=== PATIENT | female | born 1960 | race African-American/Black ===

== ENCOUNTER 2016-10-24 12:59 | Inpatient (IN) | payer MEDICAID, OTHER ==
[2016-10-24] VITALS (12 sets, daily range): BP systolic 80–106; BP diastolic 53–85
[~2016-10-24] VITALS: Ht 172.7 cm; Wt 103.9 kg
[~2016-10-24 12:59] MED LIST: ALDACTONE50 MG ORAL; ANUCORT-HC25 MG RECTAL; ASPIRIN500 MG ORAL; COREG3.125 MG ORAL; DIGOXIN0.125 MG/2 ORAL; FUROSEMIDE20 M1 ORAL; GLIPIZIDE5 MG ORAL; HUMULIN N100 UNIT/3 SQ; HUMULIN R100 UNIT/1 SUBQ; HYDROCODONE; HYDROCORTISONE20 MG PO; JANUVIA100 MG ORAL; OMEPRAZOLE20 M2 ORAL; SIMVASTATIN40 MG ORAL; SIMVASTATIN5 MG ORAL; ZOFRAN4 MG ORAL; ZOLOFT50 MG ORAL
[2016-10-24] MEDS ORDERED: MAG-OXIDE400 M1 PO (13:14)
[2016-10-24] MEDS ORDERED: VITAMIN B12 PO (13:14)
[2016-10-24] MEDS ORDERED: VENTOLIN HFA18 GM INH (13:14)
[2016-10-24] MEDS ORDERED: Solu-MEDROL 125mg Inj IVP ONE (13:15)
[2016-10-24] MEDS ORDERED: Ipratropium 0.02% Inh Soln 2.5ml UD HHN ONE (13:15)
[2016-10-24] MEDS ORDERED: FERROUS SULFAT325 MG ORAL (13:15)
[2016-10-24] MEDS ORDERED: fentaNYL 100 mcg/2 mL IV ONE (13:15)
[2016-10-24] MEDS ORDERED: DICLOFENAC SODI50 MG ORAL (13:16)
[2016-10-24] MEDS ORDERED: MONTELUKAST SOD10 MG ORAL (13:18)
[2016-10-24] MEDS ORDERED: JARDIANCE PO (13:18)
[2016-10-24] MEDS ORDERED: PROBIOTIC1 EAC3 PO (13:20)
[2016-10-24] MEDS ORDERED: ASPIR 8181 MG ORAL (13:20)
[2016-10-24] MEDS ORDERED: IBUPROFEN PO (13:20)
[2016-10-24] MEDS ORDERED: VITAMIN D2 PO (13:23)
[2016-10-24] MEDS ORDERED: GABAPENTIN300 MG ORAL (13:23)
[2016-10-24] MEDS ORDERED: TRAZODONE HCL50 MG ORAL (13:23)
[2016-10-24] MEDS ORDERED: METFORMIN HCL1000 M1 ORAL (13:23)
[2016-10-24] MEDS: Albuterol ud Inhalation HHN SCH ×3 (13:26→13:45)
[2016-10-24 13:30] LABS: BASOPHILS % (AUTO) 0.9 % (0.0-2.0); EOSINOPHILS % (AUTO) 0.7 % (0.0-3.0); MEAN CORPUSCULAR VOLUME 93 FL (80-99); MEAN PLATELET VOLUME 5.3 FL (6.5-10.1); MONOCYTES % (AUTO) 5.4 % (1.0-10.0); PLATELET COUNT 351 K/UL (150-450); RED CELL DISTRIBUTION WIDTH 17.6 % (11.6-14.8); WHITE BLOOD COUNT 9.2 K/UL (4.8-10.8)
--- NOTE | 2016-10-24 13:40 | Diagnostic Imaging Report ---
Indication: Dyspnea Comparison: 05/08/13 A single view chest radiograph was obtained. Findings: Prominent interstitial markings and prominent pulmonary vessels demonstrated with cardiomegaly. No definite pleural effusions are appreciated. There is a pacemaker again noted on the left. Bones are unremarkable. Impression: Evidence of CHF
[2016-10-24 13:48] LABS: ALANINE AMINOTRANSFERASE 19 U/L (3-33); ALBUMIN/GLOBULIN RATIO 1.3 (1.0-2.7); ANION GAP 13 (5-15); ASPARTATE AMINO TRANSFERASE 20 U/L (5-40); CALCIUM 9.2 mg/dL (8.6-10.2); CARBON DIOXIDE 25 mEQ/L (20-30); CHLORIDE 104 mEQ/L (98-107); CREATININE 2.4 mg/dL (0.5-0.9); GLOMERULAR FILTRATION RATE 25.6 mL/min (>60); HEMOLYSIS 31; POTASSIUM 5.1 mEQ/L (3.4-4.9); SODIUM 142 mEQ/L (135-145); TOTAL PROTEIN 7.4 g/dL (6.6-8.7)
[2016-10-24 13:55] LABS: INR 1.2 (0.9-1.1); PROTHROMBIN TIME 12.1 SEC (9.30-11.50)
--- NOTE | 2016-10-24 14:49 | Emergency Room Report ---
History of Present Illness General Chief Complaint: Dyspnea/Respdistress Source: Patient, EMS Present Illness HPI Patient presents via EMS with dyspnea. Low O2 sats at home. Given albuterol on way in with improved sats (98%). H/O COPD and CHF. Denies chest pain, fever, NVD, productive cough. Not on prednisone at this time. States never intubated and this is not her worst attack. In past has had problems with inhalers and some forms of steroids. Uses BIPAP at home as well as nebulizer. Diabetic, not eat today. On digoxin. Also h/o psych problems. 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 Retains fluid - some edema. 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 Reviewed Nursing Documentation: PMH: Agreed, PSxH: Agreed Nursing Documentation-PMH Past Medical History: No History, Except For Hx Cardiac Problems: Yes - Left sided AICD Hx Hypertension: Yes Hx Pacemaker: Yes Hx COPD: Yes Hx Diabetes: Yes Hx Cancer: No Hx Gastrointestinal Problems: Yes Hx Neurological Problems: Yes Hx Cerebrovascular Accident: Yes - 2007 Hx Dizziness: Yes Hx Syncope: Yes Hx Numbness: Yes - Right side Review of Systems All Other Systems: negative except mentioned in HPI Physical Exam Vital Signs Date Time Temp Pulse Resp B/P Pulse Ox O2 Delivery O2 Flow Rate FiO2 10/24/16 12:58 97.7 93 18 83/54 100 Room Air 10/24/16 13:51 10.0 10/24/16 14:36 30 Sp02 EP Interpretation: reviewed, normal General Appearance: mild distress Head: normocephalic Eyes: bilateral eye PERRL, bilateral eye normal inspection ENT: moist mucus membranes Neck: supple Respiratory: no respiratory distress, no retraction, no accessory muscle use, wheezing, expiration, inspiration Cardiovascular #1: regular rate, rhythm, edema Cardiovascular #2: 2+ radial (R) Gastrointestinal: normal inspection, non tender, no mass, abnormal bowel sounds - decreased, overweight Musculoskeletal: back normal, normal range of motion Neurologic: alert, oriented x3, grossly normal Psychiatric: mood/affect normal Skin: normal inspection, warm/dry Procedures Critical Care Time Critical Care Time Total Critical Care Time: 30 min bedside evaluation and treatment excludes procedures (EKG). Reason for critical care: CHF, resp failure, hypoglycemia, bronchospasm Possible complications: hypotension, hypertension, HI, shock, arrhythmias, metabolic acidosis, end organ damage, respiratory failure. Interventions: BIPAP, D50W, repeated evaluations, discussion regarding possible intubation Course: Patient with hypoxia and bronchospasm. Treated with beta agents and solumedrol. Intermittent hypoxia - BIPAP begun with improvement. Glucose low D50W given. (No major change in mentation - easily responds - no lethargy. Discussed possible intubation with rewinder operator helper and patient - she wants eveything done. Consultations: nursing staff, EMS, family, RT, admitting and critical care MDs Performed by: Dr. Ricardo Tolerated well condition = critical Medical Decision Making Diagnostic Impression: Primary Impression: Respiratory failure Qualified Codes: J96.21 - Acute and chronic respiratory failure with hypoxia; J96.22 - Acute and chronic respiratory failure with hypercapnia Additional Impressions: Congestive heart failure Qualified Codes: I50.23 - Acute on chronic systolic (congestive) heart failure Bronchospasm Hypoglycemia Renal insufficiency ER Course Patient with low O2 with bronchospasm and h/o CHF. DDx: CHF, COPD exacerbation , pneumonia, HI amongst others. Significant bronchospasm. Emergent treatment with solumedrol, albuterol and atrovent. CXR more CHF than COPD. Lasix ordered. No evidence of HI. BNP elevated. Normal WBC and not productive sputum - not start antibiotics. Patient refusing more breathing treatments. O2 sats variable, but low. Start BIPAP. Improved O2 sat on BIPAP. Patient with glucose 52. D50W ordered. Repeat accuchecks also ordered. ABG had been ordered. Patient improved but critical condition. Admit ICU. Dr. Arias and Dr. Winter notified. Signed out to Dr. Samayoa. Laboratory Tests Test 10/24/16 13:10 10/24/16 13:45 10/24/16 14:49 10/24/16 15:20 White Blood Count 9.2 K/UL (4.8-10.8) Red Blood Count 4.40 M/UL (4.20-5.40) Hemoglobin 11.9 G/DL (12.0-16.0) L Hematocrit 41.0 % (37.0-47.0) Mean Corpuscular Volume 93 FL (80-99) Mean Corpuscular Hemoglobin 27.0 PG (27.0-31.0) Mean Corpuscular Hemoglobin Concent 29.0 G/DL (32.0-36.0) L Red Cell Distribution Width 17.6 % (11.6-14.8) H Platelet Count 351 K/UL (150-450) Mean Platelet Volume 5.3 FL (6.5-10.1) L Neutrophils (%) (Auto) 58.0 % (45.0-75.0) Lymphocytes (%) (Auto) 35.0 % (20.0-45.0) Monocytes (%) (Auto) 5.4 % (1.0-10.0) Eosinophils (%) (Auto) 0.7 % (0.0-3.0) Basophils (%) (Auto) 0.9 % (0.0-2.0) Prothrombin Time 12.1 SEC (9.30-11.50) H Prothrombin Time INR 1.2 (0.9-1.1) H PTT 24 SEC (23-33) Sodium Level 142 mEQ/L (135-145) Potassium Level 5.1 mEQ/L (3.4-4.9) H Chloride Level 104 mEQ/L (98-107) Carbon Dioxide Level 25 mEQ/L (20-30) Anion Gap 13 (5-15) Blood Urea Nitrogen 33 mg/dL (7-23) H Creatinine 2.4 mg/dL (0.5-0.9) H Estimate Glomerular Filtration Rate 25.6 mL/min (>60) Glucose Level 63 mg/dL (74-106) L Calcium Level 9.2 mg/dL (8.6-10.2) Total Bilirubin 0.7 mg/dL (0.0-1.2) Aspartate Amino Transferase (AST) 20 U/L (5-40) Alanine Aminotransferase (ALT) 19 U/L (3-33) Alkaline Phosphatase 49 U/L (35-104) Total Creatine Kinase 96 U/L (26-140) Troponin I < 0.30 ng/mL (<=0.30) Pro-B-Type Natriuretic Peptide 77574 pg/mL (0-125) H Total Protein 7.4 g/dL (6.6-8.7) Albumin 4.3 g/dL (3.5-5.2) Globulin 3.1 g/dL Albumin/Globulin Ratio 1.3 (1.0-2.7) Lactic Acid Level 1.90 mmol/L (0.66-2.22) Arterial Blood pH 7.336 (7.350-7.450) Arterial Blood Partial Pressure CO2 45.0 mmHg (35.0-45.0) Arterial Blood Partial Pressure O2 86.4 mmHg (75.0-100.0) Arterial Blood HCO3 23.5 mmol/L (22.0-26.0) Arterial Blood Oxygen Saturation 95.1 % (92.0-98.0) Arterial Blood Base Excess -2.4 [place] Test Positive Urine Color Yellow Urine Appearance Clear Urine pH 5 (4.5-8.0) Urine Specific [place] 1.025 (1.005-1.035) Urine Protein 2+ (NEGATIVE) H Urine Glucose (UA) 3+ (NEGATIVE) H Urine Ketones 1+ (NEGATIVE) H Urine Occult Blood Negative (NEGATIVE) Urine Nitrite Negative (NEGATIVE) Urine Bilirubin 2+ (NEGATIVE) H Urine Ictotest Positive Urine Urobilinogen 4 MG/DL (0.0-1.0) H Urine Leukocyte Esterase 1+ (NEGATIVE) H Urine RBC 0-2 /HPF (0 - 2) Urine WBC 0-2 /HPF (0 - 2) Urine Squamous Epithelial Cells Occasional /LPF Urine Amorphous Sediment Few /LPF (NONE) H Urine Bacteria Occasional /HPF (NONE) EKG Diagnostic Results Rate: normal Rhythm: NSR ST Segments: no acute changes Rhythm Strip Diag. Results EP Interpretation: yes Rhythm: NSR, no PVC's, no ectopy Chest X-Ray Diagnostic Results Chest X-Ray Diagnostic Results : Chest X-Ray Ordered: Yes # of Views/Limited/Complete: 1 View Indication: Shortness of Breath Interpretation: no pneumothorax, other - pacer, CHF, inc cor Impression: Other Interpreting ER Provider: Electronically signed by Christopher Ricardo MD Last Vital Signs Date Time Temp Pulse Resp B/P Pulse Ox O2 Delivery O2 Flow Rate FiO2 10/24/16 14:36 89 18 100 Facial 30 10/24/16 13:51 100/81 10.0 10/24/16 12:58 97.7 Status: improved Disposition: ADMITTED INPATIENT Condition: Critical Referrals: NON PHYSICIAN (PCP) Christopher Ricardo M.D. Oct 24, 2016 14:49
[2016-10-24 15:40] LABS: APPEARANCE,URINE CLEAR; KETONES,URINE 1+ (NEGATIVE); LEUKOCYTE ESTERASE ,URINE 1+ (NEGATIVE); NITRITE,URINE NEGATIVE (NEGATIVE); PH,URINE 5 (4.5-8.0); PROTEIN,URINE 2+ (NEGATIVE); UROBILINOGEN,URINE 4 MG/DL (0.0-1.0)
[2016-10-24 15:58] LABS: RBC,URINE 0-2 /HPF (0 - 2); SQUAMOUS EPITHELIAL CELL,UR OCCASIONAL /LPF (NONE/OCC); WBC,URINE 0-2 /HPF (0 - 2)
[2016-10-24 15:59] LABS: ABG ALLEN TEST POSITIVE; ABG BASE EXCESS -2.4
[2016-10-24 15:59] LABS: AMORPHOUS SEDIMENT,UR FEW /LPF; BACTERIA,URINE OCCASIONAL /HPF
[2016-10-24 16:08] LABS: ICTOTEST POSITIVE
[2016-10-24] MEDS ORDERED: Miralax 17gm pkt ORAL PRN (16:15)
[2016-10-24] MEDS ORDERED: TraZODone 50mg tab ORAL PRN (16:15)
[2016-10-24] MEDS ORDERED: NOVOLIN N100 UNIT/1 SUBQ (16:29)
[2016-10-24 16:40] LABS: TROPONIN I < 0.30 ng/mL (<=0.30)
--- NOTE | 2016-10-24 19:19 | Pulmonolgy Critical Care Note ---
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 - Objective Last 24 Hour Vital Signs Date Time Temp Pulse Resp B/P Pulse Ox O2 Delivery O2 Flow Rate FiO2 10/24/16 18:00 93 10/24/16 18:00 97.7 91 19 80/55 100 Simple Mask 10.0 10/24/16 17:30 89 28 100 Facial 30 10/24/16 17:18 87 24 112/66 98 Bi-pap 30 10/24/16 17:00 89 16 98/73 100 Bi-pap 30 10/24/16 16:20 91 28 98 Facial 30 10/24/16 16:00 97.6 90 20 92/73 97 Nasal Cannula 4.0 10/24/16 14:50 97.7 89 24 106/68 94 Bi-pap 30 10/24/16 14:36 89 18 100 Facial 30 10/24/16 14:34 97.6 10/24/16 14:30 92 24 Nasal Cannula 10/24/16 14:30 30 10/24/16 14:20 91 28 87/53 87 Nasal Cannula 2.0 10/24/16 13:58 93 26 100 Room Air 10/24/16 13:51 92 26 100/81 99 Simple Mask 10.0 10/24/16 13:40 89 22 100/58 100 Room Air 10/24/16 13:26 90 32 96 Room Air 10/24/16 13:10 92 26 Room Air 10/24/16 12:58 97.7 93 18 83/54 100 Room Air Status: sedated Condition: critical, grave HEENT: atraumatic Neck: full ROM Lungs: clear Heart: HR/BP stable Abdomen: soft, non-tender Extremities: no C/C/E, edema Decubiti: location Accucheck: 93 Critical Care - Subjective ROS Limited/Unobtainable: No ICU Day: 1 Interval Events: 56 year old with ischemic cardiomyopathy, ICD, DM, smoker, poor compliance, presented to ER with CC of increased SOB, pt was in respiratory failure in ER, received diuretics and was put on BIPAP and transferred to ICU. FI02: 30 Sputum Amount: None CXR: mild pulmonary edema, BART MARIE Oct 24, 2016 19:19
[2016-10-24] MEDS: Heparin 5000 units/ml inj SUBQ SCH (20:53)
[2016-10-24] MEDS: NovoLOG Insulin Flexpen SUBQ SCH (20:55)
[2016-10-24] MEDS: Carvedilol 12.5mg tab ORAL SCH (21:00)
[2016-10-24] MEDS: Norco 10mg/325mg tab ORAL PRN (22:00)
[2016-10-25] VITALS (24 sets, daily range): BP systolic 90–134; BP diastolic 56–115
[2016-10-25] MEDS: NovoLOG Insulin Flexpen SUBQ SCH ×4 (05:43→21:07)
[2016-10-25 06:08] LABS: BASOPHILS % (AUTO) 0.4 % (0.0-2.0); LYMPHOCYTES % (AUTO) 16.9 % (20.0-45.0); MEAN CORPUSCULAR HEMOGLOBIN 27.9 PG (27.0-31.0); MEAN CORPUSCULAR HGB CONC 29.9 G/DL (32.0-36.0); MEAN CORPUSCULAR VOLUME 93 FL (80-99); MEAN PLATELET VOLUME 5.6 FL (6.5-10.1); MONOCYTES % (AUTO) 3.3 % (1.0-10.0); NEUTROPHILS % (AUTO) 79.4 % (45.0-75.0); PLATELET COUNT 316 K/UL (150-450); RED BLOOD COUNT 4.21 M/UL (4.20-5.40); RED CELL DISTRIBUTION WIDTH 17.3 % (11.6-14.8); WHITE BLOOD COUNT 8.9 K/UL (4.8-10.8)
[2016-10-25] MEDS: Norco 10mg/325mg tab ORAL PRN ×3 (06:30→21:05)
[2016-10-25 07:05] LABS: CALCIUM 9.2 mg/dL (8.6-10.2); CREATININE 2.4 mg/dL (0.5-0.9); GLOMERULAR FILTRATION RATE 25.6 mL/min (>60); PHOSPHORUS 4.9 mg/dL (2.5-4.8); POTASSIUM 5.2 mEQ/L (3.4-4.9)
[2016-10-25] MEDS: Digoxin Elixir 0.125mg ORAL SCH (08:34)
[2016-10-25] MEDS: Sertraline 50mg tab ORAL SCH (08:36)
[2016-10-25] MEDS: Carvedilol 12.5mg tab ORAL SCH ×2 (08:36→21:02)
[2016-10-25] MEDS: Heparin 5000 units/ml inj SUBQ SCH ×2 (08:38→21:06)
[2016-10-25 08:49] LABS: MAGNESIUM 2.4 mg/dL (1.7-2.5); PHOSPHORUS 4.9 mg/dL (2.5-4.8)
--- NOTE | 2016-10-25 09:31 | Diagnostic Imaging Report ---
Indication:Elevated Bun and Creatinine. Technique: Grayscale and duplex Doppler imaging of the kidneys performed. Comparison: None Findings: The size, contour, and echogenicity of both kidneys are within normal limits. Both kidneys are approximately 10 cm in length. There is no hydronephrosis. The IVC and urinary bladder are unremarkable. Bladder catheter noted. Impression: Negative exam
--- NOTE | 2016-10-25 10:21 | Diagnostic Imaging Report ---
Indication: Dyspnea Comparison: 10/24/16 A single view chest radiograph was obtained. Findings: Pulmonary vascular prominence and mild interstitial edema present. Heart remains enlarged. Lung volumes are slightly more expanded on the current study. Accounting for this there is probably no change. Impression: Suspected mild interstitial edema certainly no worse and probably unchanged from the last study.
--- NOTE | 2016-10-25 11:22 | Pulmonolgy Critical Care Note ---
Critical Care - Asmt/Plan Problems: (1) Acute respiratory failure (2) Congestive heart failure (3) ATN (acute tubular necrosis) (4) Type I diabetes mellitus with peripheral circulatory disorder Critical Care - Objective Last 24 Hour Vital Signs Date Time Temp Pulse Resp B/P Pulse Ox O2 Delivery O2 Flow Rate FiO2 10/25/16 10:00 91 18 131/96 91 Nasal Cannula 2.0 10/25/16 09:24 91 18 99 2.0 28 10/25/16 09:00 92 21 113/95 95 Nasal Cannula 2.0 10/25/16 08:36 93 113/79 10/25/16 08:34 93 10/25/16 08:00 93 10/25/16 08:00 93 10/25/16 08:00 97.8 93 21 118/95 95 Nasal Cannula 2.0 10/25/16 07:29 98.0 10/25/16 07:02 94 21 98 2.0 28 10/25/16 07:00 94 21 102/64 94 Nasal Cannula 2.0 10/25/16 06:00 90 21 114/76 96 Nasal Cannula 2.0 10/25/16 05:00 95 24 103/73 95 Nasal Cannula 2.0 10/25/16 04:00 96 10/25/16 04:00 97.9 95 24 100/58 95 Nasal Cannula 2.0 10/25/16 03:00 95 24 99/73 100 Bi-pap 30 10/25/16 02:55 93 26 100 Facial 30 10/25/16 02:30 28 10/25/16 02:00 94 24 90/59 100 Bi-pap 30 10/25/16 01:48 83 20 100 Facial 30 10/25/16 01:00 88 24 121/92 100 Bi-pap 30 10/25/16 00:00 98.3 89 28 101/75 100 Bi-pap 30 10/25/16 00:00 87 10/24/16 23:25 91 24 100 Facial 30 10/24/16 23:00 90 27 103/78 99 Bi-pap 30 10/24/16 23:00 28 10/24/16 22:00 92 29 97/65 100 Simple Mask 5.0 10/24/16 21:00 90 90/60 10/24/16 21:00 90 28 104/75 99 Simple Mask 5.0 10/24/16 20:00 97.7 90 27 99/85 99 Simple Mask 5.0 10/24/16 19:00 88 20 97/78 100 Bi-pap 30 10/24/16 18:00 93 10/24/16 18:00 97.7 91 19 80/55 100 Simple Mask 10.0 10/24/16 17:30 89 28 100 Facial 30 10/24/16 17:18 87 24 112/66 98 Bi-pap 30 10/24/16 17:00 89 16 98/73 100 Bi-pap 30 10/24/16 16:20 91 28 98 Facial 30 10/24/16 16:00 97.6 90 20 92/73 97 Nasal Cannula 4.0 10/24/16 14:50 97.7 89 24 106/68 94 Bi-pap 30 10/24/16 14:36 89 18 100 Facial 30 10/24/16 14:34 97.6 10/24/16 14:30 92 24 Nasal Cannula 10/24/16 14:30 30 10/24/16 14:20 91 28 87/53 87 Nasal Cannula 2.0 10/24/16 13:58 93 26 100 Room Air 10/24/16 13:51 92 26 100/81 99 Simple Mask 10.0 10/24/16 13:40 89 22 100/58 100 Room Air 10/24/16 13:26 90 32 96 Room Air 10/24/16 13:10 92 26 Room Air 10/24/16 12:58 97.7 93 18 83/54 100 Room Air Accucheck: 161 Critical Care - Subjective ROS Limited/Unobtainable: No ICU Day: 2 Interval Events: diuresing well, bipap at night check electrolytes renal US reviewed EchO done cardio and renal evaluation optimize cardiac meds. FI02: 28 Sputum Amount: None I&O: Intake and Output 10/24/16 10/25/16 19:00 07:00 Intake Total 100 ml Output Total 330 ml 1040 ml Balance -330 ml -940 ml Intake Oral 100 ml Output Urine Total 330 ml 1040 ml # Bowel Movements 1 BART MARIE Oct 25, 2016 11:22
[2016-10-25] MEDS ORDERED: Lansoprazole 15mg cap ORAL SCH (12:00)
--- NOTE | 2016-10-25 12:44 | Diagnostic Imaging Report ---
APPROVED REPORT CPT Code: 38908 Present Symptoms Shortness of breath BILATERAL: Imaging reveals a patent deep venous system bilaterally. There is no evidence of thrombus within the femoral, popliteal or tibial segments. The greater saphenous veins are also within normal limits. Doppler indicates normal spontaneous flow within these segments.
--- NOTE | 2016-10-25 16:24 | Consultation ---
Consult Note Consult Note asked to eval for renal failure- Patient presents via EMS with dyspnea. Low O2 sats at home. Given albuterol on way in with improved sats (98%). H/O COPD and CHF. Denies chest pain, fever, NVD, productive cough. Not on prednisone at this time. States never intubated and this is not her worst attack. In past has had problems with inhalers and some forms of steroids. Uses BIPAP at home as well as nebulizer. Diabetic, On digoxin. Also h/o psych problems. 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 Retains fluid - some edema. 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 Reviewed Nursing Documentation: PMH: Agreed, PSxH: Agreed Past Medical History: No History, Except For Hx Cardiac Problems: Yes - Left sided AICD Hx Hypertension: Yes Hx Pacemaker: Yes Hx COPD: Yes Hx Diabetes: Yes Hx Gastrointestinal Problems: Yes Hx Neurological Problems: Yes Hx Cerebrovascular Accident: Yes - 2007 Hx Dizziness: Yes Hx Syncope: Yes Hx Numbness: Yes - Right side Interviewed / Examined RN and Brother present Data reviewed Assessment/Plan Status: (1) Acute respiratory failure (2) Congestive heart failure- Severe Cardiomyopathy- Low Ej Fx (3) ATN (acute tubular necrosis), due to underlying heart disease and DM (4) Type I diabetes mellitus with peripheral circulatory disorder. (5) Obese Plan; Optimize cardiac status- Avoid Nephrotoxics Monitor renal parameters Kidney EWELINA Cazares Oct 25, 2016 16:23
[2016-10-25 17:47] LABS: TROPONIN I < 0.30 ng/mL (<=0.30)
--- NOTE | 2016-10-25 17:54 | History & Physical ---
History and Physical History & Physicial Dictated for Int Med-Dr Arias no. [id number]. ICU CLYDEALEISHA Oct 25, 2016 17:54
--- NOTE | 2016-10-25 18:41 | Cardiology Progress Note ---
Assessment/Plan Assessment/Plan chf acut sytolic and diastolic cm mr ar copd obeisty dirutic acei bb once chf better ? copd rxn [id number] Objective Last 24 Hour Vital Signs Date Time Temp Pulse Resp B/P Pulse Ox O2 Delivery O2 Flow Rate FiO2 10/25/16 18:00 90 21 117/92 100 Nasal Cannula 2.0 10/25/16 17:00 91 21 106/80 99 Nasal Cannula 2.0 10/25/16 16:00 92 22 120/72 98 Nasal Cannula 2.0 10/25/16 16:00 93 10/25/16 15:00 92 20 112/82 98 Nasal Cannula 2.0 10/25/16 14:00 93 20 103/81 99 Nasal Cannula 2.0 10/25/16 13:00 93 22 134/115 98 Nasal Cannula 2.0 10/25/16 12:52 90 20 98 2.0 28 10/25/16 12:00 90 21 120/56 99 Nasal Cannula 2.0 10/25/16 12:00 94 10/25/16 11:00 90 19 106/70 99 Nasal Cannula 2.0 10/25/16 10:51 92 18 99 2.0 28 10/25/16 10:00 91 18 131/96 91 Nasal Cannula 2.0 10/25/16 09:24 91 18 99 2.0 28 10/25/16 09:00 92 21 113/95 95 Nasal Cannula 2.0 10/25/16 08:36 93 113/79 10/25/16 08:34 93 10/25/16 08:00 93 10/25/16 08:00 93 10/25/16 08:00 97.8 93 21 118/95 95 Nasal Cannula 2.0 10/25/16 07:29 98.0 10/25/16 07:02 94 21 98 2.0 28 10/25/16 07:00 94 21 102/64 94 Nasal Cannula 2.0 10/25/16 06:00 90 21 114/76 96 Nasal Cannula 2.0 10/25/16 05:00 95 24 103/73 95 Nasal Cannula 2.0 10/25/16 04:00 96 10/25/16 04:00 97.9 95 24 100/58 95 Nasal Cannula 2.0 10/25/16 03:00 95 24 99/73 100 Bi-pap 30 10/25/16 02:55 93 26 100 Facial 30 10/25/16 02:30 28 10/25/16 02:00 94 24 90/59 100 Bi-pap 30 10/25/16 01:48 83 20 100 Facial 30 10/25/16 01:00 88 24 121/92 100 Bi-pap 30 10/25/16 00:00 98.3 89 28 101/75 100 Bi-pap 30 10/25/16 00:00 87 10/24/16 23:25 91 24 100 Facial 30 10/24/16 23:00 90 27 103/78 99 Bi-pap 30 10/24/16 23:00 28 10/24/16 22:00 92 29 97/65 100 Simple Mask 5.0 10/24/16 21:00 90 90/60 10/24/16 21:00 90 28 104/75 99 Simple Mask 5.0 10/24/16 20:00 97.7 90 27 99/85 99 Simple Mask 5.0 10/24/16 19:00 88 20 97/78 100 Bi-pap 30 Intake and Output 10/24/16 10/25/16 19:00 07:00 Intake Total 100 ml Output Total 330 ml 1040 ml Balance -330 ml -940 ml Intake Oral 100 ml Output Urine Total 330 ml 1040 ml # Bowel Movements 1 Laboratory Tests Test 10/25/16 05:10 10/25/16 16:15 White Blood Count 8.9 K/UL (4.8-10.8) Red Blood Count 4.21 M/UL (4.20-5.40) Hemoglobin 11.8 G/DL (12.0-16.0) L Hematocrit 39.3 % (37.0-47.0) Mean Corpuscular Volume 93 FL (80-99) Mean Corpuscular Hemoglobin 27.9 PG (27.0-31.0) Mean Corpuscular Hemoglobin Concent 29.9 G/DL (32.0-36.0) L Red Cell Distribution Width 17.3 % (11.6-14.8) H Platelet Count 316 K/UL (150-450) Mean Platelet Volume 5.6 FL (6.5-10.1) L Neutrophils (%) (Auto) 79.4 % (45.0-75.0) H Lymphocytes (%) (Auto) 16.9 % (20.0-45.0) L Monocytes (%) (Auto) 3.3 % (1.0-10.0) Eosinophils (%) (Auto) 0.0 % (0.0-3.0) Basophils (%) (Auto) 0.4 % (0.0-2.0) Sodium Level 137 mEQ/L (135-145) Potassium Level 5.2 mEQ/L (3.4-4.9) H Chloride Level 99 mEQ/L (98-107) Carbon Dioxide Level 21 mEQ/L (20-30) Anion Gap 17 (5-15) H Blood Urea Nitrogen 44 mg/dL (7-23) H Creatinine 2.4 mg/dL (0.5-0.9) H Estimat Glomerular Filtration Rate 25.6 mL/min (>60) Glucose Level 173 mg/dL (74-106) #H Calcium Level 9.2 mg/dL (8.6-10.2) Phosphorus Level 4.9 mg/dL (2.5-4.8) H Magnesium Level 2.4 mg/dL (1.7-2.5) Pro-B-Type Natriuretic Peptide 37169 pg/mL (0-125) H Albumin 4.4 g/dL (3.5-5.2) Troponin I < 0.30 ng/mL (<=0.30) OLLIE DE DIOS Oct 25, 2016 18:41
[2016-10-25] MEDS: Lisinopril 2.5mg tab ORAL SCH (21:03)
[2016-10-25] MEDS: DuoNeb 0.5-3(2.5)mg/3ml neb HHN PRN (21:14)
[2016-10-26] VITALS (19 sets, daily range): BP systolic 71–102; BP diastolic 48–77
--- NOTE | 2016-10-26 03:30 | History and Physical Report ---
DATE OF ADMISSION: 10/24/2016 CHIEF COMPLAINT: The patient is a 56-year-old female, who presents with chief complaint of cough, fever, and dizziness. HISTORY OF PRESENT ILLNESS: On 10/21/2016, the patient began to experience vertigo. The patient also was confused. The patient had muscle pain. The patient began to experience a nonproductive cough. The patient also had a fever. The patient presented to [facility]. The patient was admitted for acute respiratory failure and congestive heart failure. PAST MEDICAL HISTORY: Significant for, 1. Type 2 diabetes. 2. Hypertension. 3. Chronic obstructive pulmonary disease. 4. Congestive heart failure. PAST SURGICAL HISTORY: Significant for AICD placement in 2007 at [facility]. CURRENT MEDICATIONS: 1. Albuterol metered dose inhaler 2 puffs p.o. q.6 h. p.r.n. 2. Aspirin 81 mg one tablet p.o. daily. 3. Coreg 12.5 mg one tablet p.o. twice daily. 4. Voltaren 50 mg one tablet p.o. twice daily. 5. Digoxin 0.125 mg one tablet p.o. daily. 6. Iron sulfate 325 mg one tablet p.o. daily. 7. Lasix 80 mg one tablet p.o. daily. 8. Neurontin 600 mg one tablet p.o. three times daily. 9. Glipizide 5 mg one tablet p.o. twice daily. 10. Regular insulin sliding scale. 11. Magnesium oxide 400 mg one tablet p.o. twice daily. 12. Metformin 1000 mg one tablet p.o. twice daily. 13. Singulair 10 mg one tablet p.o. at bedtime. 14. NPH insulin 54 units subcutaneously at bedtime. 15. Omeprazole 20 mg one tablet p.o. daily. 16. Zoloft 50 mg one tablet p.o. daily. 17. Zocor 40 mg one tablet p.o. at bedtime. 18. Januvia 100 mg one tablet p.o. daily. 19. Spironolactone 25 mg one tablet p.o. daily. 20. Trazodone 50 mg one tablet p.o. at bedtime. 21. Ibuprofen 200 mg one tablet p.o. q.6 h. p.r.n. 22. 12.5 mg one tablet p.o. daily. ALLERGIES: 1. Penicillin. 2. Advair. 3. Spiriva. SOCIAL HISTORY: The patient is disabled and lives with home health care service provider. The patient admits to tobacco use of 2 cigarettes per day. The patient previously smoked up to 2 packs of cigarettes daily. The patient denies alcohol. REVIEW OF SYSTEMS: Constitutional: The patient denies weight loss or weight gain. The patient complains of fevers as above. HEENT: The patient denies ear or throat pain. The patient denies headache. Cardiovascular: The patient denies palpitations or chest pain. Chest: The patient complains of shortness of breath. The patient complains of cough as above. The patient denies wheezes. Abdomen: The patient denies nausea, vomiting, diarrhea, or constipation. Genitourinary: The patient denies dysuria or increased frequency of urination. Neuromuscular: The patient denies seizures or generalized weakness. PHYSICAL EXAMINATION: VITAL SIGNS: Temperature 97.8 degrees, respirations 21, pulse 92, blood pressure 118/95, and oxygen saturation 94% to 98% on 2 liters nasal cannula. GENERAL: The patient is a well-developed, well-nourished, slightly obese female, in no apparent distress. HEENT: Pupils are equal and responsive to light and accommodation. Extraocular movements are intact. NECK: Supple without lymphadenopathy. CHEST: Decreased breath sounds bilateral at bases. Otherwise, clear to auscultation bilaterally without wheezes or rales. CARDIOVASCULAR: Regular rhythm and rate. S1 and S2 are normal without murmurs, rubs, or gallops. ABDOMEN: Soft, nontender, and nondistended. Positive bowel sounds. No hepatosplenomegaly. Currently, no rebound or guarding noted. EXTREMITIES: Negative for clubbing, cyanosis, or edema. RECTAL: Refused. GENITALIA: Refused. NEUROLOGIC: Cranial nerves II through XII are grossly intact without focal deficits. Motor strength is 5/5 bilaterally. Deep tendon reflexes are 2+ plantar. DIAGNOSTIC STUDIES: WBC 9.2, hemoglobin 11.9, hematocrit 41.0, and platelets 351,000. Sodium 142, potassium 5.1, chloride 104, CO2 25, BUN 30, creatinine 2.4, and glucose 63. BNP elevated at 18,714. Troponin is less than 0.3. Chest x-ray revealed prominent interstitial markings consistent with congestive heart failure. ASSESSMENT: This is a 56-year-old female. 1. Acute respiratory failure. 2. Congestive heart failure. 3. Renal failure. 4. Diabetes type 2. 5. Hypertension. 6. Chronic obstructive pulmonary disease. TREATMENT: 1. Acute respiratory failure/chronic obstructive pulmonary disease. A Pulmonary consultation was obtained with Dr. Arnoldo Winter. The patient is currently receiving DuoNeb every q.4 h. p.r.n. We will follow recommendations of Pulmonary. 2. Congestive heart failure. The patient's ejection fraction is 10% to 15%. A Cardiology consultation was obtained with Dr. Nathan Post. 3. Renal failure may be secondary to chronic Lasix therapy. A Nephrology consultation was obtained with Dr. Vaughn. 4. Diabetes type 2. The patient has been started on a NovoLog sliding scale. 5. Hypertension. Continue Coreg and spironolactone as above. 6. Chronic obstructive pulmonary disease. Clay Pagan M.D. DR: FLACA JOB#: [id number] CC:
--- NOTE | 2016-10-26 03:30 | Consultation ---
DATE OF CONSULTATION: 10/25/2016 CARDIOLOGY CONSULTATION CONSULTING PHYSICIAN: Nathan Post M.D. REFERRING PHYSICIAN: Rosales Arias M.D. REASON FOR REFERRAL: Congestive heart failure. HISTORY OF PRESENT ILLNESS: This is an unfortunate 56-year-old female with history of cardiomyopathy and history of intracardiac defibrillator implantation some time ago and is followed usually at [facility], who presented to the hospital because of generalized weakness and shortness of breath and some pain around her defibrillator, sharp sensation, apparently lasts more than few seconds to few minutes, and gets worse with twisting, turning, taking a deep breath, activity, or with rest. She has orthopnea, two pillows, cannot sleep at night, and has obstructive sleep apnea. She uses a CPAP and is unable to walk much because of generalized weakness and her legs are almost giving way. PAST MEDICAL HISTORY: Positive for diabetes and high blood pressure. She has a history of heart attack. No cancer. She has had a stroke. No hepatitis or tuberculosis. No asthma or emphysema. No ulcers. No kidney problems, liver problems, thyroid problems, anemia, arthritis, blood clots, or human immunodeficiency virus. The patient has sleep apnea and also chronic respiratory acidosis secondary to obesity and heart disease, acute and chronic systolic and diastolic dysfunction, as well as chronic obstructive pulmonary disease with hypertensive heart disease. ALLERGIES: She is allergic to multiple medications including fluticasone, formoterol, mometasone, salmeterol, and tiotropium. SOCIAL HISTORY: Admits to smoking two cigarettes per day. Denies pack of cigarettes per day. Denies any alcohol or drugs. REVIEW OF SYSTEMS: Gastrointestinal: She has had some nausea and vomiting. Genitourinary: Negative. Pulmonary System: Positive. Constitutional: Negative. Cardiac: As mentioned above. Neurologic: Weakness in her legs. PHYSICAL EXAMINATION: GENERAL: Shows her to be middle-aged female, in respiratory distress, although she is eating dinner. She is on nasal cannula. VITAL SIGNS: Blood pressure is anywhere between 106/80 to 117/92 with heart rate in the 90s and saturation on two liters between 98% and 100%. NECK: Supple. No jugular venous distention. LUNGS: Few expiratory respiratory wheezes. Few crackles noted. CARDIAC: Regular rate and rhythm. No heaves or thrills noted. ABDOMEN: Soft and obese. Positive bowel sounds. EXTREMITIES: There is no clubbing, cyanosis, nor is there any edema. NEUROLOGIC: She is awake, alert, and responsive and in no apparent respiratory distress. LABORATORY DATA: White count 8.9, hemoglobin 11.8, and platelet count of 316,000. PH is 7.33, pCO2 of 45, pO2 of 86, and bicarbonate of 23. Sodium is 137, potassium 5.2, chloride 99, bicarbonate of 21, BUN of 44, creatinine 2.4, and glucose of 173. Phosphorus is 4.9. Troponins on two separate occasions less than 0.1. Pro-BNP of 20,000. Albumin of 4.4. INR is 1.2 and a PTT of 26. Tox screen positive for opiates. Urinalysis is 4+ urobilinogen and 1+ leukocyte esterase. ASSESSMENT AND PLAN: 1. Acute on chronic congestive heart failure. 2. Cardiomyopathy, dilated possibly. 3. History of intracardiac defibrillator placement. 4. Severe mitral and aortic regurgitation. 5. Diastolic dysfunction. 6. Pulmonary hypertension. 7. Obesity. 8. Chronic obstructive pulmonary disease. PLAN: This patient was seen in cardiac consultation. The patient probably has a combination of congestive heart failure and chronic obstructive pulmonary disease. Her electrocardiogram does not show any ischemic changes. She has had a cardiomyopathy that dates back at least known to 2013. Her EKG is abnormal in terms of and R-wave progression, although that is likely secondary to lead placement. She should be continued on medications for heart failure. Avoidance of nonsteroidals and anti-inflammatory medications would be in order. The patient should receive some MELINDA inhibitors as well as Aldactone as well as beta-blockers once her acute heart failure resolves. She has been on digoxin, not clear to me whether she actually has any history of coronary disease or not. She should be on MELINDA inhibitors as her blood pressure does as well as continuation of diuretics on a likely b.i.d. dosing until her heart failure resolves. She should be receiving breathing treatments as per recommendations of Pulmonary and Dr. Winter as well. She indicates she is allergic to many medications as mentioned, most of them are inhaler in origin, but albuterol and Atrovent does not appear to be on that list at this time. I will follow the patient along with you. Nathan Post M.D. DR: RUPINDER JOB#: [id number] CC:
[2016-10-26 05:11] LABS: BASOPHILS % (AUTO) 0.5 % (0.0-2.0); EOSINOPHILS % (AUTO) 0.1 % (0.0-3.0); LYMPHOCYTES % (AUTO) 25.8 % (20.0-45.0); MEAN CORPUSCULAR HEMOGLOBIN 28.6 PG (27.0-31.0); MEAN CORPUSCULAR HGB CONC 30.7 G/DL (32.0-36.0); MEAN CORPUSCULAR VOLUME 93 FL (80-99); MEAN PLATELET VOLUME 6.3 FL (6.5-10.1); NEUTROPHILS % (AUTO) 66.7 % (45.0-75.0); PLATELET COUNT 268 K/UL (150-450); RED BLOOD COUNT 3.89 M/UL (4.20-5.40); RED CELL DISTRIBUTION WIDTH 17.7 % (11.6-14.8); WHITE BLOOD COUNT 11.9 K/UL (4.8-10.8)
[2016-10-26 05:16] LABS: ALBUMIN/GLOBULIN RATIO 1.5 (1.0-2.7); CALCIUM 8.9 mg/dL (8.6-10.2); CREATININE 2.3 mg/dL (0.5-0.9); GLOMERULAR FILTRATION RATE 26.8 mL/min (>60); POTASSIUM 4.2 mEQ/L (3.4-4.9)
[2016-10-26 05:28] LABS: DIGOXIN 0.4 ng/mL (0.5-2.0)
[2016-10-26 05:50] LABS: HEMOGLOBIN A1C 6.1 % (< 6.0)
[2016-10-26 05:52] LABS: CHOLESTEROL 127 mg/dL (< 200); CRP QUANT 1.5 mg/dL (< 0.5); HEMOLYSIS 10; LDL CHOLESTEROL (CALC.) 88 mg/dL (60-99); MAGNESIUM 2.4 mg/dL (1.7-2.5); PHOSPHORUS 4.9 mg/dL (2.5-4.8); URIC ACID 13.7 mg/dL (3.0-7.5)
[2016-10-26 06:01] LABS: THYROID STIMULATING HORMONE 0.556 uIU/mL (0.300-4.500)
[2016-10-26] MEDS: NovoLOG Insulin Flexpen SUBQ SCH ×4 (07:06→21:41)
[2016-10-26 07:23] LABS: TROPONIN I < 0.30 ng/mL (<=0.30)
--- NOTE | 2016-10-26 08:29 | Diagnostic Imaging Report ---
Indications: DYSPNEA Technique: Portable AP chest Findings: Comparison: 10/25/16 Cardiac silhouette remains enlarged. Pulmonary vascular redistribution and bilateral interstitial prominence persists, mildly increased. No new abnormality identified. IMPRESSION: Apparent mild increase in bilateral congestive changes
[2016-10-26] MEDS: Carvedilol 12.5mg tab ORAL SCH (09:00)
[2016-10-26] MEDS: Lisinopril 2.5mg tab ORAL SCH (09:00)
[2016-10-26] MEDS: Sertraline 50mg tab ORAL SCH (09:30)
[2016-10-26] MEDS: Digoxin Elixir 0.125mg ORAL SCH (09:31)
[2016-10-26] MEDS: Heparin 5000 units/ml inj SUBQ SCH ×2 (09:33→21:41)
[2016-10-26] MEDS: Norco 10mg/325mg tab ORAL PRN ×2 (09:36→19:49)
[2016-10-26] MEDS: DuoNeb 0.5-3(2.5)mg/3ml neb HHN PRN ×2 (10:15→22:59)
--- NOTE | 2016-10-26 15:59 | Internal Med Progress Note ---
Subjective Date of Service: Oct 26, 2016 Physician Name LatashaAleisha Attending Physician Rosales Arias MD Current Medications Medications (Trade) Dose Ordered Sig/Stephanie Route PRN Reason Start Time Stop Time Status Last Admin Dose Admin Acetaminophen (Tylenol) 650 mg Q4H PRN ORAL Fever 10/24/16 16:15 11/23/16 16:14 Acetaminophen/ Hydrocodone Bitart (Britt 10/325) 1 ea Q6H PRN ORAL PAIN 4-10 10/24/16 21:30 10/31/16 21:29 10/26/16 09:36 Albuterol/ Ipratropium (DuoNeb 0.5-3(2.5)mg/3ml) 3 ml Q4H PRN HHN Shortness of Breath 10/25/16 07:00 10/30/16 06:59 10/26/16 10:15 Carvedilol (Coreg) 12.5 mg Q12HR ORAL 10/24/16 21:00 11/23/16 20:59 10/25/16 21:02 Dextrose (Dextrose 50%) STAT PRN IV Hypoglycemia 10/24/16 16:15 11/23/16 16:14 Digoxin (Lanoxin) 0.125 mg DAILY ORAL 10/25/16 09:00 11/24/16 08:59 10/26/16 09:31 Furosemide (Lasix) 40 mg Q8HR IV 10/24/16 17:30 11/23/16 17:29 10/26/16 15:36 Gabapentin (Neurontin) 600 mg THREE TIMES A DAY ORAL 10/24/16 18:00 11/23/16 17:59 10/26/16 12:48 Heparin Sodium (Porcine) (Heparin 5000 units/ml) 5,000 units EVERY 12 HOURS SUBQ 10/24/16 21:00 11/23/16 20:59 10/26/16 09:33 Insulin Aspart (NovoLOG) BEFORE MEALS AND HS SUBQ 10/24/16 21:00 11/23/16 20:59 10/26/16 11:42 Lisinopril (Zestril) 2.5 mg DAILY ORAL 10/25/16 21:00 11/24/16 20:59 10/25/16 21:03 Ondansetron HCl (Zofran) 4 mg Q6H PRN IVP Nausea & Vomiting 10/24/16 16:15 11/23/16 16:14 Pantoprazole (Protonix) 40 mg EVERY 12 HOURS ORAL 10/25/16 21:00 11/24/16 20:59 10/26/16 09:30 Polyethylene Glycol (Miralax) 17 gm DAILYPRN PRN ORAL Constipation 10/24/16 16:15 11/23/16 16:14 Sertraline HCl (Zoloft) 50 mg DAILY ORAL 10/25/16 09:00 11/24/16 08:59 10/26/16 09:30 Temazepam (Restoril) 15 mg HSPRN PRN ORAL Insomnia 10/24/16 16:15 10/31/16 16:14 10/24/16 22:00 Trazodone HCl (Desyrel) 50 mg QHS PRN ORAL Insomnia 10/24/16 16:15 11/23/16 16:14 Allergies: Coded Allergies: PENICILLINS (Verified Allergy, Intermediate, RASH, 05/08/13) FLUTICASONE (Verified Allergy, Unknown, 10/24/16) FORMOTEROL (Unverified Allergy, Unknown, 10/24/16) MOMETASONE FUROATE (Unverified Allergy, Unknown, 10/24/16) SALMETEROL (Verified Allergy, Unknown, 10/24/16) TIOTROPIUM (Verified Allergy, Unknown, 10/24/16) ROS Limited/Unobtainable: No Constitutional: Reports: no symptoms HEENT: Reports: no symptoms Cardiovascular: Reports: no symptoms Respiratory: Reports: shortness of breath Gastrointestinal/Abdominal: Reports: no symptoms Genitourinary: Reports: no symptoms Neurologic/Psychiatric: Reports: no symptoms Subjective 56 YO F admitted with respiratory failure. ICU. Cover for Reena Arias. Objective Last Vital Signs Date Time Temp Pulse Resp B/P Pulse Ox O2 Delivery O2 Flow Rate FiO2 10/26/16 14:00 73 20 85/66 96 Nasal Cannula 2.0 10/26/16 12:00 97.8 10/26/16 07:12 30 General Appearance: WD/WN, alert, mild distress EENT: PERRL/EOMI, normal ENT inspection Neck: non-tender, normal alignment, supple, normal inspection Cardiovascular: normal peripheral pulses, normal rate, regular rhythm, no gallop/murmur, no JVD Respiratory/Chest: chest wall non-tender, crackles/rales, rhonchi - bilaterally , expiratory wheezing Abdomen: normal bowel sounds, non tender, soft, no organomegaly, no mass Edema: trace edema Skin: normal pigmentation, warm/dry Laboratory Tests Test 10/25/16 16:15 10/26/16 04:00 Troponin I < 0.30 ng/mL (<=0.30) < 0.30 ng/mL (<=0.30) White Blood Count 11.9 K/UL (4.8-10.8) H Red Blood Count 3.89 M/UL (4.20-5.40) L Hemoglobin 11.1 G/DL (12.0-16.0) L Hematocrit 36.3 % (37.0-47.0) L Mean Corpuscular Volume 93 FL (80-99) Mean Corpuscular Hemoglobin 28.6 PG (27.0-31.0) Mean Corpuscular Hemoglobin Concent 30.7 G/DL (32.0-36.0) L Red Cell Distribution Width 17.7 % (11.6-14.8) H Platelet Count 268 K/UL (150-450) Mean Platelet Volume 6.3 FL (6.5-10.1) L Neutrophils (%) (Auto) 66.7 % (45.0-75.0) Lymphocytes (%) (Auto) 25.8 % (20.0-45.0) Monocytes (%) (Auto) 7.0 % (1.0-10.0) Eosinophils (%) (Auto) 0.1 % (0.0-3.0) Basophils (%) (Auto) 0.5 % (0.0-2.0) Sodium Level 139 mEQ/L (135-145) Potassium Level 4.2 mEQ/L (3.4-4.9) Chloride Level 99 mEQ/L (98-107) Carbon Dioxide Level 26 mEQ/L (20-30) Anion Gap 14 (5-15) Blood Urea Nitrogen 57 mg/dL (7-23) H Creatinine 2.3 mg/dL (0.5-0.9) H Estimat Glomerular Filtration Rate 26.8 mL/min (>60) Glucose Level 135 mg/dL (74-106) H Hemoglobin A1c 6.1 % (< 6.0) H Uric Acid 13.7 mg/dL (3.0-7.5) H Calcium Level 8.9 mg/dL (8.6-10.2) Phosphorus Level 4.9 mg/dL (2.5-4.8) H Magnesium Level 2.4 mg/dL (1.7-2.5) Total Bilirubin 0.9 mg/dL (0.0-1.2) Gamma Glutamyl Transpeptidase 61 U/L (5-36) H Aspartate Amino Transf (AST/SGOT) 23 U/L (5-40) Alanine Aminotransferase (ALT/SGPT) 22 U/L (3-33) Alkaline Phosphatase 46 U/L (35-104) Total Creatine Kinase 68 U/L (26-140) C-Reactive Protein, Quantitative 1.5 mg/dL (< 0.5) H Pro-B-Type Natriuretic Peptide 35399 pg/mL (0-125) H Total Protein 7.0 g/dL (6.6-8.7) Albumin 4.3 g/dL (3.5-5.2) Globulin 2.7 g/dL Albumin/Globulin Ratio 1.5 (1.0-2.7) Triglycerides Level 90 mg/dL (< 150) Cholesterol Level 127 mg/dL (< 200) LDL Cholesterol 88 mg/dL (60-99) HDL Cholesterol 21 mg/dL (> 60) Cholesterol/HDL Ratio 6.0 (3.3-4.4) H Thyroid Stimulating Hormone (TSH) 0.556 uIU/mL (0.300-4.500) Digoxin Level 0.4 ng/mL (0.5-2.0) L Microbiology Date/Time Source Procedure Growth Status 10/24/16 15:50 Blood Blood Culture - Preliminary NO GROWTH AFTER 24 HOURS Resulted 10/24/16 13:45 Blood Blood Culture - Preliminary NO GROWTH AFTER 24 HOURS Resulted 10/24/16 15:37 Nasal Nares MRSA Culture - Final NO METHICILLIN RESISTANT STAPH AUREUS... Complete 10/24/16 15:25 Rectum VRE Culture - Final NO VANCOMYCIN RESISTANT ENTEROCOCCUS ... Complete Intake and Output 10/25/16 10/26/16 19:00 07:00 Intake Total 300 ml Output Total 910 ml 1660 ml Balance -910 ml -1360 ml Intake Oral 300 ml Output Urine Total 910 ml 1660 ml Assessment/Plan Problem List: (1) HTN (hypertension) Assessment & Plan: Continue lisinopril. (2) COPD (chronic obstructive pulmonary disease) Assessment & Plan: See pulmonary note. (3) Acute respiratory failure Assessment & Plan: Due to CHF and COPD. See pulmonary and cardiology note. (4) Congestive heart failure Assessment & Plan: EF 10-15%. See cardiology note. (5) Renal insufficiency (6) Diabetes mellitus Assessment & Plan: Continue novolog sliding scale. Assessment/Plan Transfer to tele today ALEISHA TANG Oct 26, 2016 15:59
--- NOTE | 2016-10-26 16:06 | Cardiology Progress Note ---
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 she is diuresing ( (> 3L over past 2 days) w/ iv lasix q 8 hrs. Assessment/Plan Continue iv diuretics follow i/os, renal fxn, wts. difficult to uptitrate meds due to low BP. ICD will be interrogated. Agree w/ transfer to telemetry Subjective ROS Limited/Unobtainable: No Subjective Cardiology for Dr. Post Pt c/o diffuse pain. Appears dyspneic w/ mild activity. Objective Last 24 Hour Vital Signs Date Time Temp Pulse Resp B/P Pulse Ox O2 Delivery O2 Flow Rate FiO2 10/26/16 14:00 73 20 85/66 96 Nasal Cannula 2.0 10/26/16 13:00 72 21 83/53 99 Nasal Cannula 2.0 10/26/16 12:00 97.8 71 20 100/77 98 Nasal Cannula 2.0 10/26/16 12:00 69 10/26/16 11:00 72 21 78/48 98 Nasal Cannula 2.0 10/26/16 10:26 70 14 100 Nasal Cannula 3.0 10/26/16 10:16 72 16 100 Nasal Cannula 3.0 10/26/16 10:00 70 22 81/62 99 Nasal Cannula 2.0 10/26/16 09:31 67 10/26/16 09:00 82/53 10/26/16 09:00 71 82/53 10/26/16 09:00 71 20 83/56 96 Nasal Cannula 2.0 10/26/16 08:00 97.8 66 26 91/57 99 Nasal Cannula 2.0 10/26/16 08:00 67 10/26/16 07:12 68 26 100 Facial 30 10/26/16 07:00 68 19 78/61 99 Nasal Cannula 2.0 10/26/16 06:00 60 15 92/66 100 Nasal Cannula 2.0 10/26/16 05:00 60 23 92/65 100 Nasal Cannula 2.0 10/26/16 04:47 63 18 100 Facial 30 10/26/16 04:00 60 10/26/16 04:00 28 10/26/16 04:00 97.5 60 26 95/67 100 Nasal Cannula 2.0 10/26/16 03:00 60 32 90/62 100 Nasal Cannula 2.0 10/26/16 02:47 64 18 100 Facial 30 10/26/16 02:00 63 28 90/60 100 Nasal Cannula 2.0 10/26/16 01:00 70 19 93/61 100 Nasal Cannula 2.0 10/26/16 00:44 72 16 98 Facial 30 10/26/16 00:30 28 10/26/16 00:00 80 10/26/16 00:00 98.3 95 20 102/70 97 Nasal Cannula 2.0 10/25/16 23:00 87 23 101/73 97 Nasal Cannula 2.0 10/25/16 22:00 92 24 109/78 98 Nasal Cannula 2.0 10/25/16 21:15 91 22 100 Nasal Cannula 3.0 32 10/25/16 21:06 87 20 100 Nasal Cannula 3.0 32 10/25/16 21:03 103/78 10/25/16 21:02 89 103/78 10/25/16 21:00 89 23 125/96 96 Nasal Cannula 2.0 10/25/16 20:00 91 10/25/16 20:00 98.3 91 25 103/78 95 Nasal Cannula 2.0 10/25/16 19:00 92 20 106/78 100 Nasal Cannula 2.0 10/25/16 18:00 90 21 117/92 100 Nasal Cannula 2.0 10/25/16 17:00 91 21 106/80 99 Nasal Cannula 2.0 General Appearance: WD/WN, mild distress, obese EENT: PERRL/EOMI Neck: supple, no JVD Rhythm: NSR Cardiovascular: normal rate, regular rhythm, no gallop/murmur, other - distant heart sounds Respiratory/Chest: decreased breath sounds Abdomen: non tender, soft, other - obese Extremities: no swelling Intake and Output 10/25/16 10/26/16 19:00 07:00 Intake Total 300 ml Output Total 910 ml 1660 ml Balance -910 ml -1360 ml Intake Oral 300 ml Output Urine Total 910 ml 1660 ml Laboratory Tests Test 10/25/16 16:15 10/26/16 04:00 Troponin I < 0.30 ng/mL (<=0.30) < 0.30 ng/mL (<=0.30) White Blood Count 11.9 K/UL (4.8-10.8) H Red Blood Count 3.89 M/UL (4.20-5.40) L Hemoglobin 11.1 G/DL (12.0-16.0) L Hematocrit 36.3 % (37.0-47.0) L Mean Corpuscular Volume 93 FL (80-99) Mean Corpuscular Hemoglobin 28.6 PG (27.0-31.0) Mean Corpuscular Hemoglobin Concent 30.7 G/DL (32.0-36.0) L Red Cell Distribution Width 17.7 % (11.6-14.8) H Platelet Count 268 K/UL (150-450) Mean Platelet Volume 6.3 FL (6.5-10.1) L Neutrophils (%) (Auto) 66.7 % (45.0-75.0) Lymphocytes (%) (Auto) 25.8 % (20.0-45.0) Monocytes (%) (Auto) 7.0 % (1.0-10.0) Eosinophils (%) (Auto) 0.1 % (0.0-3.0) Basophils (%) (Auto) 0.5 % (0.0-2.0) Sodium Level 139 mEQ/L (135-145) Potassium Level 4.2 mEQ/L (3.4-4.9) Chloride Level 99 mEQ/L (98-107) Carbon Dioxide Level 26 mEQ/L (20-30) Anion Gap 14 (5-15) Blood Urea Nitrogen 57 mg/dL (7-23) H Creatinine 2.3 mg/dL (0.5-0.9) H Estimat Glomerular Filtration Rate 26.8 mL/min (>60) Glucose Level 135 mg/dL (74-106) H Hemoglobin A1c 6.1 % (< 6.0) H Uric Acid 13.7 mg/dL (3.0-7.5) H Calcium Level 8.9 mg/dL (8.6-10.2) Phosphorus Level 4.9 mg/dL (2.5-4.8) H Magnesium Level 2.4 mg/dL (1.7-2.5) Total Bilirubin 0.9 mg/dL (0.0-1.2) Gamma Glutamyl Transpeptidase 61 U/L (5-36) H Aspartate Amino Transf (AST/SGOT) 23 U/L (5-40) Alanine Aminotransferase (ALT/SGPT) 22 U/L (3-33) Alkaline Phosphatase 46 U/L (35-104) Total Creatine Kinase 68 U/L (26-140) C-Reactive Protein, Quantitative 1.5 mg/dL (< 0.5) H Pro-B-Type Natriuretic Peptide 80225 pg/mL (0-125) H Total Protein 7.0 g/dL (6.6-8.7) Albumin 4.3 g/dL (3.5-5.2) Globulin 2.7 g/dL Albumin/Globulin Ratio 1.5 (1.0-2.7) Triglycerides Level 90 mg/dL (< 150) Cholesterol Level 127 mg/dL (< 200) LDL Cholesterol 88 mg/dL (60-99) HDL Cholesterol 21 mg/dL (> 60) Cholesterol/HDL Ratio 6.0 (3.3-4.4) H Thyroid Stimulating Hormone (TSH) 0.556 uIU/mL (0.300-4.500) Digoxin Level 0.4 ng/mL (0.5-2.0) L Microbiology Date/Time Source Procedure Growth Status 10/24/16 15:50 Blood Blood Culture - Preliminary NO GROWTH AFTER 24 HOURS Resulted 10/24/16 13:45 Blood Blood Culture - Preliminary NO GROWTH AFTER 24 HOURS Resulted 10/24/16 15:37 Nasal Nares MRSA Culture - Final NO METHICILLIN RESISTANT STAPH AUREUS... Complete 10/24/16 15:25 Rectum VRE Culture - Final NO VANCOMYCIN RESISTANT ENTEROCOCCUS ... Complete ANGELICA JONES Oct 26, 2016 16:06
--- NOTE | 2016-10-26 16:25 | General Progress Note ---
Assessment/Plan Status: unchanged Status Narrative Cr higher Assessment/Plan Status: (1) Acute respiratory failure (2) Congestive heart failure- Severe Cardiomyopathy- Low Ej Fx (3) ATN (acute tubular necrosis), due to underlying heart disease and DM (4) Type I diabetes mellitus with peripheral circulatory disorder. (5) Obese Plan; Optimize cardiac status- Avoid Nephrotoxics Monitor renal parameters Kidney RUBÉN Thompson 24 h urine CRCL and Protein Subjective ROS Limited/Unobtainable: No Allergies: Coded Allergies: PENICILLINS (Verified Allergy, Intermediate, RASH, 05/08/13) FLUTICASONE (Verified Allergy, Unknown, 10/24/16) FORMOTEROL (Unverified Allergy, Unknown, 10/24/16) MOMETASONE FUROATE (Unverified Allergy, Unknown, 10/24/16) SALMETEROL (Verified Allergy, Unknown, 10/24/16) TIOTROPIUM (Verified Allergy, Unknown, 10/24/16) Objective Last 24 Hour Vital Signs Date Time Temp Pulse Resp B/P Pulse Ox O2 Delivery O2 Flow Rate FiO2 10/26/16 16:00 75 10/26/16 14:00 73 20 85/66 96 Nasal Cannula 2.0 10/26/16 13:00 72 21 83/53 99 Nasal Cannula 2.0 10/26/16 12:00 97.8 71 20 100/77 98 Nasal Cannula 2.0 10/26/16 12:00 69 10/26/16 11:00 72 21 78/48 98 Nasal Cannula 2.0 10/26/16 10:26 70 14 100 Nasal Cannula 3.0 10/26/16 10:16 72 16 100 Nasal Cannula 3.0 10/26/16 10:00 70 22 81/62 99 Nasal Cannula 2.0 10/26/16 09:31 67 10/26/16 09:00 82/53 10/26/16 09:00 71 82/53 10/26/16 09:00 71 20 83/56 96 Nasal Cannula 2.0 10/26/16 08:00 97.8 66 26 91/57 99 Nasal Cannula 2.0 10/26/16 08:00 67 10/26/16 07:12 68 26 100 Facial 30 10/26/16 07:00 68 19 78/61 99 Nasal Cannula 2.0 10/26/16 06:00 60 15 92/66 100 Nasal Cannula 2.0 10/26/16 05:00 60 23 92/65 100 Nasal Cannula 2.0 10/26/16 04:47 63 18 100 Facial 30 10/26/16 04:00 60 10/26/16 04:00 28 10/26/16 04:00 97.5 60 26 95/67 100 Nasal Cannula 2.0 10/26/16 03:00 60 32 90/62 100 Nasal Cannula 2.0 10/26/16 02:47 64 18 100 Facial 30 10/26/16 02:00 63 28 90/60 100 Nasal Cannula 2.0 10/26/16 01:00 70 19 93/61 100 Nasal Cannula 2.0 10/26/16 00:44 72 16 98 Facial 30 10/26/16 00:30 28 10/26/16 00:00 80 10/26/16 00:00 98.3 95 20 102/70 97 Nasal Cannula 2.0 10/25/16 23:00 87 23 101/73 97 Nasal Cannula 2.0 10/25/16 22:00 92 24 109/78 98 Nasal Cannula 2.0 10/25/16 21:15 91 22 100 Nasal Cannula 3.0 32 10/25/16 21:06 87 20 100 Nasal Cannula 3.0 32 10/25/16 21:03 103/78 10/25/16 21:02 89 103/78 10/25/16 21:00 89 23 125/96 96 Nasal Cannula 2.0 10/25/16 20:00 91 10/25/16 20:00 98.3 91 25 103/78 95 Nasal Cannula 2.0 10/25/16 19:00 92 20 106/78 100 Nasal Cannula 2.0 10/25/16 18:00 90 21 117/92 100 Nasal Cannula 2.0 10/25/16 17:00 91 21 106/80 99 Nasal Cannula 2.0 Intake and Output 10/25/16 10/26/16 19:00 07:00 Intake Total 300 ml Output Total 910 ml 1660 ml Balance -910 ml -1360 ml Intake Oral 300 ml Output Urine Total 910 ml 1660 ml Laboratory Tests 10/26/16 04:00: White Blood Count 11.9H, Red Blood Count 3.89L, Hemoglobin 11.1L, Hematocrit 36.3L, Mean Corpuscular Volume 93, Mean Corpuscular Hemoglobin 28.6, Mean Corpuscular Hemoglobin Concent 30.7L, Red Cell Distribution Width 17.7H, Platelet Count 268, Mean Platelet Volume 6.3L, Neutrophils (%) (Auto) 66.7, Lymphocytes (%) (Auto) 25.8, Monocytes (%) (Auto) 7.0, Eosinophils (%) (Auto) 0.1, Basophils (%) (Auto) 0.5, Sodium Level 139, Potassium Level 4.2, Chloride Level 99, Carbon Dioxide Level 26, Anion Gap 14, Blood Urea Nitrogen 57H, Creatinine 2.3H, Estimat Glomerular Filtration Rate 26.8, Glucose Level 135H, Hemoglobin A1c 6.1H, Uric Acid 13.7H, Calcium Level 8.9, Phosphorus Level 4.9H, Magnesium Level 2.4, Total Bilirubin 0.9, Gamma Glutamyl Transpeptidase 61H, Aspartate Amino Transf (AST/SGOT) 23, Alanine Aminotransferase (ALT/SGPT) 22, Alkaline Phosphatase 46, Total Creatine Kinase 68, Troponin I < 0.30, C- Reactive Protein, Quantitative 1.5H, Pro-B-Type Natriuretic Peptide 35375L, Total Protein 7.0, Albumin 4.3, Globulin 2.7, Albumin/Globulin Ratio 1.5, Triglycerides Level 90, Cholesterol Level 127, LDL Cholesterol 88, HDL Cholesterol 21, Cholesterol/HDL Ratio 6.0H, Thyroid Stimulating Hormone (TSH) 0.556, Digoxin Level 0.4L Height (Feet): 5 Height (Inches): 8.00 Weight (Pounds): 224 General Appearance: no apparent distress, lethargic Cardiovascular: normal rate Respiratory/Chest: decreased breath sounds Abdomen: soft, other - obese EWELINA COWART Oct 26, 2016 16:25
[2016-10-26 18:40] LABS: CREATININE 2.3 mg/dL (0.5-0.9); GLOMERULAR FILTRATION RATE 26.8 mL/min (>60)
[2016-10-26] MEDS ORDERED: Miralax 17gm pkt ORAL PRN (19:00)
[2016-10-26] MEDS ORDERED: Carvedilol 12.5mg tab ORAL SCH (21:00)
[2016-10-26] MEDS: TraZODone 50mg tab ORAL PRN (21:53)
[2016-10-27] VITALS: BP_SYST 177; BP_SYST 91; BP_DIAS 54; BP_DIAS 85
[2016-10-27 04:00] VITALS: BP 90/64
[2016-10-27] MEDS: NovoLOG Insulin Flexpen SUBQ SCH ×4 (06:30→22:01)
[2016-10-27 08:00] VITALS: BP 97/68
[2016-10-27 08:18] LABS: CALCIUM 9.1 mg/dL (8.6-10.2); CREATININE 2.1 mg/dL (0.5-0.9); GLOMERULAR FILTRATION RATE 29.8 mL/min (>60); MEAN CORPUSCULAR HEMOGLOBIN 27.8 PG (27.0-31.0); MEAN CORPUSCULAR HGB CONC 29.7 G/DL (32.0-36.0); MEAN CORPUSCULAR VOLUME 94 FL (80-99); MEAN PLATELET VOLUME 5.8 FL (6.5-10.1); PLATELET COUNT 236 K/UL (150-450); POTASSIUM 3.8 mEQ/L (3.4-4.9); RED BLOOD COUNT 4.22 M/UL (4.20-5.40); RED CELL DISTRIBUTION WIDTH 17.5 % (11.6-14.8); WHITE BLOOD COUNT 9.3 K/UL (4.8-10.8)
[2016-10-27] MEDS: Heparin 5000 units/ml inj SUBQ SCH ×2 (09:02→22:02)
[2016-10-27] MEDS: Sertraline 50mg tab ORAL SCH (09:04)
[2016-10-27] MEDS: Carvedilol 12.5mg tab ORAL SCH ×2 (09:04→22:03)
--- NOTE | 2016-10-27 09:04 | General Progress Note ---
Assessment/Plan Status: unchanged Assessment/Plan Status: (1) Acute respiratory failure (2) Congestive heart failure- Severe Cardiomyopathy- Low Ej Fx (3) ATN (acute tubular necrosis), due to underlying heart disease and DM (4) Type I diabetes mellitus with peripheral circulatory disorder. (5) Obese Plan; no labs today Optimize cardiac status- Avoid Nephrotoxics Monitor renal parameters Kidney RUBÉN- negative- Thompson 24 h urine CRCL and Protein pending Subjective ROS Limited/Unobtainable: No Allergies: Coded Allergies: PENICILLINS (Verified Allergy, Intermediate, RASH, 05/08/13) FLUTICASONE (Verified Allergy, Unknown, 10/24/16) FORMOTEROL (Unverified Allergy, Unknown, 10/24/16) MOMETASONE FUROATE (Unverified Allergy, Unknown, 10/24/16) SALMETEROL (Verified Allergy, Unknown, 10/24/16) TIOTROPIUM (Verified Allergy, Unknown, 10/24/16) Objective Last 24 Hour Vital Signs Date Time Temp Pulse Resp B/P Pulse Ox O2 Delivery O2 Flow Rate FiO2 10/27/16 04:00 65 10/27/16 04:00 98.0 73 20 90/64 92 Room Air 10/27/16 00:00 71 10/27/16 00:00 98.2 73 24 91/54 92 Room Air 10/26/16 22:59 74 20 100 Nasal Cannula 3.0 32 10/26/16 21:39 77 98/68 10/26/16 20:48 97.7 10/26/16 20:00 97.7 77 20 98/68 100 Nasal Cannula 2.0 10/26/16 20:00 77 10/26/16 17:00 75 28 96/68 100 Nasal Cannula 2.0 10/26/16 16:55 98 10/26/16 16:00 75 10/26/16 16:00 97.4 73 22 71/55 99 Nasal Cannula 2.0 10/26/16 15:00 73 21 84/59 100 Nasal Cannula 2.0 10/26/16 14:00 73 20 85/66 96 Nasal Cannula 2.0 10/26/16 13:00 72 21 83/53 99 Nasal Cannula 2.0 10/26/16 12:00 97.8 71 20 100/77 98 Nasal Cannula 2.0 10/26/16 12:00 69 7/8/17 11:00 72 21 78/48 98 Nasal Cannula 2.0 10/26/16 10:26 70 14 100 Nasal Cannula 3.0 10/26/16 10:16 72 16 100 Nasal Cannula 3.0 10/26/16 10:00 70 22 81/62 99 Nasal Cannula 2.0 10/26/16 09:31 67 Intake and Output 10/26/16 10/27/16 19:00 07:00 Intake Total 740 ml Output Total 795 ml 1200 ml Balance -55 ml -1200 ml Intake Oral 740 ml Output Urine Total 795 ml 1200 ml Laboratory Tests 10/26/16 18:00: Creatinine 2.3H, Estimat Glomerular Filtration Rate 26.8 10/27/16 07:10: Creatinine 2.1H, Estimat Glomerular Filtration Rate 29.8, White Blood Count 9.3 , Red Blood Count 4.22, Hemoglobin 11.7L, Hematocrit 39.5, Mean Corpuscular Volume 94, Mean Corpuscular Hemoglobin 27.8, Mean Corpuscular Hemoglobin Concent 29.7L, Red Cell Distribution Width 17.5H, Platelet Count 236, Mean Platelet Volume 5.8L, Neutrophils (%) (Auto) , Lymphocytes (%) (Auto) , Monocytes (%) (Auto) , Eosinophils (%) (Auto) , Basophils (%) (Auto) , Neutrophils % (Manual) [Pending], Lymphocytes % (Manual) [Pending], Platelet Estimate [Pending], Platelet Morphology [Pending], Sodium Level 139, Potassium Level 3.8, Chloride Level 98, Carbon Dioxide Level 28, Anion Gap 13, Blood Urea Nitrogen 56H, Glucose Level 87, Calcium Level 9.1 Height (Feet): 5 Height (Inches): 8.00 Weight (Pounds): 231 General Appearance: no apparent distress, lethargic Cardiovascular: normal rate Respiratory/Chest: decreased breath sounds Abdomen: other - obese EWELINA COWART Oct 27, 2016 09:04
[2016-10-27] MEDS: Digoxin Elixir 0.125mg ORAL SCH (09:05)
[2016-10-27 09:07] LABS: ANISOCYTOSIS 1+; BAND NEUTROPHILS % (MANUAL) 0 % (0-8); BASOPHILS % (MANUAL) 0 % (0-2); EOSINOPHILS % (MANUAL) 1 % (0-3); HYPOCHROMASIA 1+; LYMPHOCYTES % (MANUAL) 40 % (20-45); NEUTROPHILS % (MANUAL) 56 % (45-75); PLATELET ESTIMATE ADEQUATE; PLATELET MORPHOLOGY NORMAL; TOTAL CELLS COUNTED 100
[2016-10-27] MEDS: Lisinopril 2.5mg tab ORAL SCH (09:09)
[2016-10-27] MEDS: DuoNeb 0.5-3(2.5)mg/3ml neb HHN PRN ×2 (09:22→22:43)
[2016-10-27] MEDS: Norco 10mg/325mg tab ORAL PRN (11:54)
[2016-10-27 12:00] VITALS: BP 94/66
--- NOTE | 2016-10-27 13:26 | Pulmonology Progress Note ---
Assessment/Plan Problems: (1) Acute respiratory failure (2) Diabetes mellitus (3) ATN (acute tubular necrosis) (4) ICD (implantable cardioverter-defibrillator) in place (5) COPD (chronic obstructive pulmonary disease) Assessment/Plan diuresed 4.7 liters as of today less short of breath ICD interrogation pending keep in teli respiratory treatment tolerating diet check labs, renal parameters in am Subjective ROS Limited/Unobtainable: No Constitutional: Reports: no symptoms HEENT: Repors: no symptoms Respiratory: Reports: no symptoms Cardiovascular: Reports: no symptoms Gastrointestinal/Abdominal: Reports: no symptoms Allergies: Coded Allergies: PENICILLINS (Verified Allergy, Intermediate, RASH, 05/08/13) FLUTICASONE (Verified Allergy, Unknown, 10/24/16) FORMOTEROL (Unverified Allergy, Unknown, 10/24/16) MOMETASONE FUROATE (Unverified Allergy, Unknown, 10/24/16) SALMETEROL (Verified Allergy, Unknown, 10/24/16) TIOTROPIUM (Verified Allergy, Unknown, 10/24/16) Objective Last 24 Hour Vital Signs Date Time Temp Pulse Resp B/P Pulse Ox O2 Delivery O2 Flow Rate FiO2 10/27/16 09:27 81 18 100 Nasal Cannula 3.0 10/27/16 09:23 80 18 98 Nasal Cannula 3.0 32 10/27/16 09:09 97/68 10/27/16 09:05 69 10/27/16 09:04 69 97/68 10/27/16 08:00 97.2 66 19 97/68 98 Room Air 10/27/16 07:57 64 10/27/16 04:00 65 10/27/16 04:00 98.0 73 20 90/64 92 Room Air 10/27/16 00:00 71 10/27/16 00:00 98.2 73 24 91/54 92 Room Air 10/26/16 22:59 74 20 100 Nasal Cannula 3.0 32 10/26/16 21:39 77 98/68 10/26/16 20:48 97.7 10/26/16 20:00 97.7 77 20 98/68 100 Nasal Cannula 2.0 10/26/16 20:00 77 10/26/16 17:00 75 28 96/68 100 Nasal Cannula 2.0 10/26/16 16:55 98 10/26/16 16:00 75 10/26/16 16:00 97.4 73 22 71/55 99 Nasal Cannula 2.0 10/26/16 15:00 73 21 84/59 100 Nasal Cannula 2.0 10/26/16 14:00 73 20 85/66 96 Nasal Cannula 2.0 Intake and Output 10/26/16 10/27/16 19:00 07:00 Intake Total 740 ml Output Total 795 ml 1200 ml Balance -55 ml -1200 ml Intake Oral 740 ml Output Urine Total 795 ml 1200 ml General Appearance: WD/WN HEENT: normocephalic, atraumatic Respiratory/Chest: chest wall non-tender, lungs clear Breasts: no masses Cardiovascular: normal peripheral pulses, normal rate Abdomen: normal bowel sounds, soft, non tender Genitourinary: normal external genitalia Extremities: no cyanosis Skin: no rash Neurologic/Psychiatric: messenger floorperson II-XII grossly normal Microbiology Date/Time Source Procedure Growth Status 10/24/16 15:50 Blood Blood Culture - Preliminary NO GROWTH AFTER 48 HOURS Resulted 10/24/16 13:45 Blood Blood Culture - Preliminary NO GROWTH AFTER 48 HOURS Resulted 10/24/16 15:37 Nasal Nares MRSA Culture - Final NO METHICILLIN RESISTANT STAPH AUREUS... Complete 10/24/16 15:25 Rectum VRE Culture - Final NO VANCOMYCIN RESISTANT ENTEROCOCCUS ... Complete Laboratory Tests 10/26/16 18:00: Creatinine 2.3H, Estimat Glomerular Filtration Rate 26.8 10/27/16 07:10: Creatinine 2.1H, Estimat Glomerular Filtration Rate 29.8, White Blood Count 9.3 , Red Blood Count 4.22, Hemoglobin 11.7L, Hematocrit 39.5, Mean Corpuscular Volume 94, Mean Corpuscular Hemoglobin 27.8, Mean Corpuscular Hemoglobin Concent 29.7L, Red Cell Distribution Width 17.5H, Platelet Count 236, Mean Platelet Volume 5.8L, Neutrophils (%) (Auto) , Lymphocytes (%) (Auto) , Monocytes (%) (Auto) , Eosinophils (%) (Auto) , Basophils (%) (Auto) , Differential Total Cells Counted 100, Neutrophils % (Manual) 56, Lymphocytes % ( Manual) 40, Monocytes % (Manual) 3, Eosinophils % (Manual) 1, Basophils % ( Manual) 0, Band Neutrophils 0, Platelet Estimate Adequate, Platelet Morphology Normal, Hypochromasia 1+, Anisocytosis 1+, Sodium Level 139, Potassium Level 3.8 , Chloride Level 98, Carbon Dioxide Level 28, Anion Gap 13, Blood Urea Nitrogen 56H, Glucose Level 87, Calcium Level 9.1 Current Medications Medications (Trade) Dose Ordered Sig/Stephanie Route PRN Reason Start Time Stop Time Status Last Admin Dose Admin Acetaminophen (Tylenol) 650 mg Q4H PRN ORAL T>100.5 10/26/16 18:30 11/25/16 18:29 Acetaminophen/ Hydrocodone Bitart ([place] 10/325) 1 ea Q6H PRN ORAL PAIN 4-10 10/26/16 18:30 11/02/16 18:29 10/27/16 11:54 Albuterol/ Ipratropium (DuoNeb 0.5-3(2.5)mg/3ml) 3 ml Q4H PRN HHN Shortness of Breath 10/26/16 19:00 10/31/16 18:59 10/27/16 09:22 Allopurinol (Allopurinol) 300 mg DAILY ORAL 10/27/16 09:00 11/26/16 08:59 10/27/16 09:04 Carvedilol (Coreg) 12.5 mg Q12HR ORAL 10/27/16 09:00 11/26/16 08:59 10/27/16 09:04 Dextrose (Dextrose 50%) STAT PRN IV Hypoglycemia 10/27/16 19:00 11/26/16 18:59 Digoxin (Lanoxin) 0.125 mg DAILY ORAL 10/27/16 09:00 11/26/16 08:59 10/27/16 09:05 Furosemide (Lasix) 40 mg Q8HR IV 10/26/16 22:00 11/25/16 21:59 10/27/16 06:41 Gabapentin (Neurontin) 600 mg THREE TIMES A DAY ORAL 10/27/16 09:00 11/26/16 08:59 10/27/16 09:05 Heparin Sodium (Porcine) (Heparin 5000 units/ml) 5,000 units EVERY 12 HOURS SUBQ 10/26/16 21:00 11/25/16 20:59 10/27/16 09:02 Insulin Aspart (NovoLOG) BEFORE MEALS AND HS SUBQ 10/26/16 21:00 11/25/16 20:59 10/26/16 21:41 Lisinopril (Zestril) 2.5 mg DAILY ORAL 10/27/16 09:00 11/26/16 08:59 10/27/16 09:09 Ondansetron HCl (Zofran) 4 mg Q6H PRN IVP Nausea & Vomiting 10/26/16 19:00 11/25/16 18:59 Pantoprazole (Protonix) 40 mg EVERY 12 HOURS ORAL 10/26/16 21:00 11/25/16 20:59 10/27/16 09:06 Polyethylene Glycol (Miralax) 17 gm DAILYPRN PRN ORAL Constipation 10/26/16 19:00 11/25/16 18:59 Sertraline HCl (Zoloft) 50 mg DAILY ORAL 10/27/16 09:00 11/26/16 08:59 10/27/16 09:04 Temazepam (Restoril) 15 mg HSPRN PRN ORAL Insomnia 10/26/16 21:00 11/02/16 20:59 Trazodone HCl (Desyrel) 50 mg QHS PRN ORAL Insomnia 10/26/16 21:00 11/25/16 20:59 10/26/16 21:53 BART MARIE Oct 27, 2016 13:26
--- NOTE | 2016-10-27 14:49 | Internal Med Progress Note ---
Subjective Date of Service: Oct 27, 2016 Physician Name Aleisha Tang Attending Physician Rosales Arias MD Current Medications Medications (Trade) Dose Ordered Sig/Stephanie Route PRN Reason Start Time Stop Time Status Last Admin Dose Admin Acetaminophen (Tylenol) 650 mg Q4H PRN ORAL T>100.5 10/26/16 18:30 11/25/16 18:29 Acetaminophen/ Hydrocodone Bitart ([place] 10/325) 1 ea Q6H PRN ORAL PAIN 4-10 10/26/16 18:30 11/02/16 18:29 10/27/16 11:54 Albuterol/ Ipratropium (DuoNeb 0.5-3(2.5)mg/3ml) 3 ml Q4H PRN HHN Shortness of Breath 10/26/16 19:00 10/31/16 18:59 10/27/16 09:22 Allopurinol (Allopurinol) 300 mg DAILY ORAL 10/27/16 09:00 11/26/16 08:59 10/27/16 09:04 Carvedilol (Coreg) 12.5 mg Q12HR ORAL 10/27/16 09:00 11/26/16 08:59 10/27/16 09:04 Dextrose (Dextrose 50%) STAT PRN IV Hypoglycemia 10/27/16 19:00 11/26/16 18:59 Digoxin (Lanoxin) 0.125 mg DAILY ORAL 10/27/16 09:00 11/26/16 08:59 10/27/16 09:05 Furosemide (Lasix) 40 mg Q8HR IV 10/26/16 22:00 11/25/16 21:59 10/27/16 13:45 Gabapentin (Neurontin) 600 mg THREE TIMES A DAY ORAL 10/27/16 09:00 11/26/16 08:59 10/27/16 13:45 Heparin Sodium (Porcine) (Heparin 5000 units/ml) 5,000 units EVERY 12 HOURS SUBQ 10/26/16 21:00 11/25/16 20:59 10/27/16 09:02 Insulin Aspart (NovoLOG) BEFORE MEALS AND HS SUBQ 10/26/16 21:00 11/25/16 20:59 10/26/16 21:41 Lisinopril (Zestril) 2.5 mg DAILY ORAL 10/27/16 09:00 11/26/16 08:59 10/27/16 09:09 Ondansetron HCl (Zofran) 4 mg Q6H PRN IVP Nausea & Vomiting 10/26/16 19:00 11/25/16 18:59 Pantoprazole (Protonix) 40 mg EVERY 12 HOURS ORAL 10/26/16 21:00 11/25/16 20:59 10/27/16 09:06 Polyethylene Glycol (Miralax) 17 gm DAILYPRN PRN ORAL Constipation 10/26/16 19:00 11/25/16 18:59 Sertraline HCl (Zoloft) 50 mg DAILY ORAL 10/27/16 09:00 11/26/16 08:59 10/27/16 09:04 Temazepam (Restoril) 15 mg HSPRN PRN ORAL Insomnia 10/26/16 21:00 11/02/16 20:59 Trazodone HCl (Desyrel) 50 mg QHS PRN ORAL Insomnia 10/26/16 21:00 11/25/16 20:59 10/26/16 21:53 Allergies: Coded Allergies: PENICILLINS (Verified Allergy, Intermediate, RASH, 05/08/13) FLUTICASONE (Verified Allergy, Unknown, 10/24/16) FORMOTEROL (Unverified Allergy, Unknown, 10/24/16) MOMETASONE FUROATE (Unverified Allergy, Unknown, 10/24/16) SALMETEROL (Verified Allergy, Unknown, 10/24/16) TIOTROPIUM (Verified Allergy, Unknown, 10/24/16) ROS Limited/Unobtainable: No Constitutional: Reports: no symptoms HEENT: Reports: no symptoms Cardiovascular: Reports: no symptoms Respiratory: Reports: shortness of breath Gastrointestinal/Abdominal: Reports: no symptoms Genitourinary: Reports: no symptoms Neurologic/Psychiatric: Reports: no symptoms Subjective 56 YO F admitted with respiratory failure. Cover for Int Giuseppe-Dr Arias. Objective Last Vital Signs Date Time Temp Pulse Resp B/P Pulse Ox O2 Delivery O2 Flow Rate FiO2 10/27/16 12:00 95.7 60 19 94/66 97 Simple Mask 60 10/27/16 09:27 3.0 10/27/16 09:23 32 Laboratory Tests Test 10/26/16 18:00 10/27/16 07:10 Creatinine 2.3 mg/dL (0.5-0.9) H 2.1 mg/dL (0.5-0.9) H Estimat Glomerular Filtration Rate 26.8 mL/min (>60) 29.8 mL/min (>60) White Blood Count 9.3 K/UL (4.8-10.8) Red Blood Count 4.22 M/UL (4.20-5.40) Hemoglobin 11.7 G/DL (12.0-16.0) L Hematocrit 39.5 % (37.0-47.0) Mean Corpuscular Volume 94 FL (80-99) Mean Corpuscular Hemoglobin 27.8 PG (27.0-31.0) Mean Corpuscular Hemoglobin Concent 29.7 G/DL (32.0-36.0) L Red Cell Distribution Width 17.5 % (11.6-14.8) H Platelet Count 236 K/UL (150-450) Mean Platelet Volume 5.8 FL (6.5-10.1) L Neutrophils (%) (Auto) % (45.0-75.0) Lymphocytes (%) (Auto) % (20.0-45.0) Monocytes (%) (Auto) % (1.0-10.0) Eosinophils (%) (Auto) % (0.0-3.0) Basophils (%) (Auto) % (0.0-2.0) Differential Total Cells Counted 100 Neutrophils % (Manual) 56 % (45-75) Lymphocytes % (Manual) 40 % (20-45) Monocytes % (Manual) 3 % (1-10) Eosinophils % (Manual) 1 % (0-3) Basophils % (Manual) 0 % (0-2) Band Neutrophils 0 % (0-8) Platelet Estimate Adequate Platelet Morphology Normal Hypochromasia 1+ Anisocytosis 1+ Sodium Level 139 mEQ/L (135-145) Potassium Level 3.8 mEQ/L (3.4-4.9) Chloride Level 98 mEQ/L (98-107) Carbon Dioxide Level 28 mEQ/L (20-30) Anion Gap 13 (5-15) Blood Urea Nitrogen 56 mg/dL (7-23) H Glucose Level 87 mg/dL (74-106) Calcium Level 9.1 mg/dL (8.6-10.2) Microbiology Date/Time Source Procedure Growth Status 10/24/16 15:50 Blood Blood Culture - Preliminary NO GROWTH AFTER 48 HOURS Resulted 10/24/16 15:37 Nasal Nares MRSA Culture - Final NO METHICILLIN RESISTANT STAPH AUREUS... Complete 10/24/16 15:25 Rectum VRE Culture - Final NO VANCOMYCIN RESISTANT ENTEROCOCCUS ... Complete Intake and Output 10/26/16 10/27/16 19:00 07:00 Intake Total 740 ml Output Total 795 ml 1200 ml Balance -55 ml -1200 ml Intake Oral 740 ml Output Urine Total 795 ml 1200 ml Objective General Appearance: WD/WN, alert, mild distress EENT: PERRL/EOMI, normal ENT inspection Neck: non-tender, normal alignment, supple, normal inspection Cardiovascular: normal peripheral pulses, normal rate, regular rhythm, no gallop/murmur, no JVD Respiratory/Chest: chest wall non-tender, crackles/rales, rhonchi - bilaterally , expiratory wheezing Abdomen: normal bowel sounds, non tender, soft, no organomegaly, no mass Edema: trace edema Skin: normal pigmentation, warm/dry Assessment/Plan Problem List: (1) HTN (hypertension) Assessment & Plan: Continue lisinopril. (2) COPD (chronic obstructive pulmonary disease) Assessment & Plan: See pulmonary note. (3) Acute respiratory failure Assessment & Plan: Due to CHF and COPD. See pulmonary and cardiology note. (4) Congestive heart failure Assessment & Plan: EF 10-15%. See cardiology note. (5) Renal insufficiency (6) Diabetes mellitus Assessment & Plan: Continue novolog sliding scale. Status: unchanged Assessment/Plan Await ICD interrogation. ALEISHA TANG Oct 27, 2016 14:49
--- NOTE | 2016-10-27 15:48 | Cardiology Progress Note ---
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 Device was checked today and is functioning normally. there have been no vt/vf episodes she is diuresing ( (> 4L since adm) w/ iv lasix q 8 hrs. Assessment/Plan Continue current rx for chf exacerbation Follow i/os, wts, renal function continue routine ICD followup q 3 months Subjective ROS Limited/Unobtainable: No Subjective Cardiology for Dr. Post Pt transferred out of ICU to telemetry. No c/o dyspnea at rest Objective Last 24 Hour Vital Signs Date Time Temp Pulse Resp B/P Pulse Ox O2 Delivery O2 Flow Rate FiO2 10/27/16 12:00 95.7 60 19 94/66 97 Simple Mask 60 10/27/16 11:54 60 10/27/16 09:27 81 18 100 Nasal Cannula 3.0 10/27/16 09:23 80 18 98 Nasal Cannula 3.0 32 10/27/16 09:09 97/68 10/27/16 09:05 69 10/27/16 09:04 69 97/68 10/27/16 08:00 97.2 66 19 97/68 98 Room Air 10/27/16 07:57 64 10/27/16 04:00 65 10/27/16 04:00 98.0 73 20 90/64 92 Room Air 10/27/16 00:00 71 10/27/16 00:00 98.2 73 24 91/54 92 Room Air 10/26/16 22:59 74 20 100 Nasal Cannula 3.0 32 10/26/16 21:39 77 98/68 10/26/16 20:48 97.7 10/26/16 20:00 97.7 77 20 98/68 100 Nasal Cannula 2.0 10/26/16 20:00 77 10/26/16 17:00 75 28 96/68 100 Nasal Cannula 2.0 10/26/16 16:55 98 10/26/16 16:00 75 10/26/16 16:00 97.4 73 22 71/55 99 Nasal Cannula 2.0 General Appearance: WD/WN, alert, obese EENT: PERRL/EOMI Neck: supple, no JVD Rhythm: NSR Cardiovascular: normal rate, regular rhythm Respiratory/Chest: lungs clear, decreased breath sounds, crackles/rales - few r base crackles Abdomen: non tender, soft Extremities: no swelling Intake and Output 10/26/16 10/27/16 19:00 07:00 Intake Total 740 ml Output Total 795 ml 1200 ml Balance -55 ml -1200 ml Intake Oral 740 ml Output Urine Total 795 ml 1200 ml Laboratory Tests Test 10/26/16 18:00 10/27/16 07:10 Creatinine 2.3 mg/dL (0.5-0.9) H 2.1 mg/dL (0.5-0.9) H Estimat Glomerular Filtration Rate 26.8 mL/min (>60) 29.8 mL/min (>60) White Blood Count 9.3 K/UL (4.8-10.8) Red Blood Count 4.22 M/UL (4.20-5.40) Hemoglobin 11.7 G/DL (12.0-16.0) L Hematocrit 39.5 % (37.0-47.0) Mean Corpuscular Volume 94 FL (80-99) Mean Corpuscular Hemoglobin 27.8 PG (27.0-31.0) Mean Corpuscular Hemoglobin Concent 29.7 G/DL (32.0-36.0) L Red Cell Distribution Width 17.5 % (11.6-14.8) H Platelet Count 236 K/UL (150-450) Mean Platelet Volume 5.8 FL (6.5-10.1) L Neutrophils (%) (Auto) % (45.0-75.0) Lymphocytes (%) (Auto) % (20.0-45.0) Monocytes (%) (Auto) % (1.0-10.0) Eosinophils (%) (Auto) % (0.0-3.0) Basophils (%) (Auto) % (0.0-2.0) Differential Total Cells Counted 100 Neutrophils % (Manual) 56 % (45-75) Lymphocytes % (Manual) 40 % (20-45) Monocytes % (Manual) 3 % (1-10) Eosinophils % (Manual) 1 % (0-3) Basophils % (Manual) 0 % (0-2) Band Neutrophils 0 % (0-8) Platelet Estimate Adequate Platelet Morphology Normal Hypochromasia 1+ Anisocytosis 1+ Sodium Level 139 mEQ/L (135-145) Potassium Level 3.8 mEQ/L (3.4-4.9) Chloride Level 98 mEQ/L (98-107) Carbon Dioxide Level 28 mEQ/L (20-30) Anion Gap 13 (5-15) Blood Urea Nitrogen 56 mg/dL (7-23) H Glucose Level 87 mg/dL (74-106) Calcium Level 9.1 mg/dL (8.6-10.2) Microbiology Date/Time Source Procedure Growth Status 10/24/16 15:50 Blood Blood Culture - Preliminary NO GROWTH AFTER 48 HOURS Resulted Objective ICD interrogation: [facility] Current DR battery longevity 1.2-1.5 yrs sensin.3 mv atr, 11 mv ventr 0.75 v/0.5 ms atr , ventr impedance 330 ohm atr, 360 ohm ventr 44 ohm HV VT/VF - no episodes since last interrogation ANGELICA JONES Oct 27, 2016 15:48
[2016-10-27 16:00] VITALS: BP 92/65
--- NOTE | 2016-10-27 17:00 | Cardiology Report ---
APPROVED REPORT EXAM: Two-dimensional and M-mode echocardiogram with Doppler and color Doppler. INDICATION LV function M-Mode DIMENSIONS IVSd1.1 (0.7-1.1cm)Left Atrium (MM)5.2 (1.6-4.0cm) LVDd6.3 (3.5-5.6cm)Aortic Root2.5 (2.0-3.7cm) PWd1.2 (0.7-1.1cm)Aortic Cusp Exc.1.5 (1.5-2.0cm) LVDs5.4 (2.5-4.0cm) PWs1.4 cm Other Information Technically limited study due to poor acoustical windows. Left ventricular enlargement. Global left ventricular severe hypokinesis to extent visualized. Apical Akinesis. Echo density noted in the apical region, cannot r/o thrombus. Left ventricular ejection fraction estimated to be less than 20 %. Study quality precludes accurate assessment of regional wall motion. Mild left ventricular hypertrophy by 2-D. No evidence of pericardial effusion. Moderate bi-atrial enlargement. Mild right ventricular enlargement. Focal aortic valve sclerosis with adequate cusp excursion. Thickened mitral valve leaflets with normal excursion. Mitral annulus and aortic root calcification. Pulmonic valve not well visualized. Normal tricuspid valve structure. IVC dilated at 2.5 cm without physiologic collapse suggestive of increased RA pressure. Pacemaker wire present in the right side chambers. A color flow and spectral Doppler study was performed and revealed: Moderate aortic regurgitation. Severe mitral regurgitation. Mitral inflow velocities indicates possible pseudo normalization pattern implying moderately elevated left atrial pressure (Grade II). Moderate to severe tricuspid regurgitation. Tricuspid systolic velocities suggests peak right ventricular systolic pressure of 68 mmHg, consistent with severe pulmonary hypertension. Moderate pulmonic regurgitation present.
--- NOTE | 2016-10-27 17:57 | Cardiology Report ---
APPROVED REPORT EKG Measurement Heart [id number] Normal sinus rhythm Anterolateral infarct, age undetermined Abnormal ECG
[2016-10-27 20:00] VITALS: BP 96/63
[2016-10-27] MEDS: TraZODone 50mg tab ORAL PRN (22:02)
[2016-10-28] VITALS: BP 135/70
[2016-10-28 04:00] VITALS: BP 101/74
[2016-10-28] MEDS: NovoLOG Insulin Flexpen SUBQ SCH ×3 (06:29→16:30)
[2016-10-28 07:45] VITALS: BP 95/35
[2016-10-28 07:49] LABS: MEAN CORPUSCULAR HEMOGLOBIN 28.1 PG (27.0-31.0); MEAN CORPUSCULAR HGB CONC 30.4 G/DL (32.0-36.0); MEAN CORPUSCULAR VOLUME 93 FL (80-99); MEAN PLATELET VOLUME 6.2 FL (6.5-10.1); PLATELET COUNT 220 K/UL (150-450); RED BLOOD COUNT 4.55 M/UL (4.20-5.40); RED CELL DISTRIBUTION WIDTH 17.2 % (11.6-14.8); WHITE BLOOD COUNT 8.7 K/UL (4.8-10.8)
[2016-10-28 08:08] LABS: ALBUMIN/GLOBULIN RATIO 1.3 (1.0-2.7); CALCIUM 9.7 mg/dL (8.6-10.2); CREATININE 1.7 mg/dL (0.5-0.9); CRP QUANT 3.1 mg/dL (< 0.5); GLOMERULAR FILTRATION RATE 37.9 mL/min (>60); PHOSPHORUS 3.4 mg/dL (2.5-4.8); POTASSIUM 3.4 mEQ/L (3.4-4.9); TOTAL PROTEIN 7.3 g/dL (6.6-8.7); URIC ACID 12.1 mg/dL (3.0-7.5)
[2016-10-28 08:24] LABS: BILIRUBIN,DIRECT 0.6 mg/dL (0.1-0.3)
[2016-10-28 08:44] LABS: BAND NEUTROPHILS % (MANUAL) 0 % (0-8); BASOPHILS % (MANUAL) 0 % (0-2); EOSINOPHILS % (MANUAL) 1 % (0-3); LYMPHOCYTES % (MANUAL) 26 % (20-45); NEUTROPHILS % (MANUAL) 66 % (45-75); PLATELET ESTIMATE ADEQUATE; PLATELET MORPHOLOGY NORMAL; TOTAL CELLS COUNTED 100
[2016-10-28 08:45] LABS: ANISOCYTOSIS 1+; HYPOCHROMASIA 1+
[2016-10-28] MEDS: Carvedilol 12.5mg tab ORAL SCH (09:00)
[2016-10-28] MEDS: Lisinopril 2.5mg tab ORAL SCH (09:00)
[2016-10-28] MEDS: Digoxin Elixir 0.125mg ORAL SCH (09:00)
[2016-10-28] MEDS: Norco 10mg/325mg tab ORAL PRN (09:17)
[2016-10-28] MEDS: Sertraline 50mg tab ORAL SCH (09:18)
[2016-10-28] MEDS: Heparin 5000 units/ml inj SUBQ SCH (09:24)
[2016-10-28] MEDS: DuoNeb 0.5-3(2.5)mg/3ml neb HHN PRN ×3 (09:55→20:13)
--- NOTE | 2016-10-28 10:58 | General Progress Note ---
Assessment/Plan Status: stable - from renal stand Assessment/Plan Status: (1) Acute respiratory failure (2) Congestive heart failure- Severe Cardiomyopathy- Low Ej Fx (3) ATN (acute tubular necrosis), due to underlying heart disease and DM (4) Type I diabetes mellitus with peripheral circulatory disorder. (5) Obese Plan; down on mind altering meds- K supplements Optimize cardiac status- Avoid Nephrotoxics Monitor renal parameters Kidney RUBÉN- negative- Thompson- patient wants it in- 24 h urine CRCL and Protein : repeat Subjective ROS Limited/Unobtainable: No Constitutional: Reports: malaise, weakness Allergies: Coded Allergies: PENICILLINS (Verified Allergy, Intermediate, RASH, 05/08/13) FLUTICASONE (Verified Allergy, Unknown, 10/24/16) FORMOTEROL (Unverified Allergy, Unknown, 10/24/16) MOMETASONE FUROATE (Unverified Allergy, Unknown, 10/24/16) SALMETEROL (Verified Allergy, Unknown, 10/24/16) TIOTROPIUM (Verified Allergy, Unknown, 10/24/16) Objective Last 24 Hour Vital Signs Date Time Temp Pulse Resp B/P Pulse Ox O2 Delivery O2 Flow Rate FiO2 10/28/16 10:04 75 18 100 Nasal Cannula 3.0 32 10/28/16 09:52 75 18 98 Nasal Cannula 3.0 32 10/28/16 09:00 60 95/35 10/28/16 09:00 95/35 10/28/16 09:00 60 10/28/16 07:45 96.6 60 18 95/35 97 Room Air 10/28/16 04:00 98.0 61 19 101/74 100 Nasal Cannula 2.0 10/28/16 04:00 62 10/28/16 00:00 97.5 67 22 135/70 96 Nasal Cannula 2.0 10/28/16 00:00 67 10/27/16 22:43 64 18 98 Nasal Cannula 3.0 32 10/27/16 22:03 64 96/63 10/27/16 20:00 97.2 64 20 96/63 99 Nasal Cannula 3.0 10/27/16 20:00 80 10/27/16 16:00 97.3 60 19 92/65 100 Simple Mask 60 10/27/16 15:51 71 10/27/16 12:00 95.7 60 19 94/66 97 Simple Mask 60 10/27/16 11:54 60 Intake and Output 10/27/16 10/28/16 19:00 07:00 Intake Total 300 ml Output Total 1700 ml 2300 ml Balance -1700 ml -2000 ml Intake Oral 300 ml Output Urine Total 1700 ml 2300 ml Laboratory Tests 10/28/16 07:15: White Blood Count 8.7, Red Blood Count 4.55, Hemoglobin 12.8, Hematocrit 42.1, Mean Corpuscular Volume 93, Mean Corpuscular Hemoglobin 28.1, Mean Corpuscular Hemoglobin Concent 30.4L, Red Cell Distribution Width 17.2H, Platelet Count 220 , Mean Platelet Volume 6.2L, Neutrophils (%) (Auto) , Lymphocytes (%) (Auto) , Monocytes (%) (Auto) , Eosinophils (%) (Auto) , Basophils (%) (Auto) , Differential Total Cells Counted 100, Neutrophils % (Manual) 66, Lymphocytes % ( Manual) 26, Monocytes % (Manual) 7, Eosinophils % (Manual) 1, Basophils % ( Manual) 0, Band Neutrophils 0, Platelet Estimate Adequate, Platelet Morphology Normal, Hypochromasia 1+, Anisocytosis 1+, Sodium Level 141, Potassium Level 3.4 , Chloride Level 97L, Carbon Dioxide Level 31H, Anion Gap 13, Blood Urea Nitrogen 42H, Creatinine 1.7H, Estimat Glomerular Filtration Rate 37.9, Glucose Level 115H, Uric Acid 12.1H, Calcium Level 9.7, Phosphorus Level 3.4, Magnesium Level 2.0, Total Bilirubin 1.4H, Direct Bilirubin 0.6H, Aspartate Amino Transf ( AST/SGOT) 19, Alanine Aminotransferase (ALT/SGPT) 25, Alkaline Phosphatase 54, C -Reactive Protein, Quantitative 3.1H, Pro-B-Type Natriuretic Peptide 6151H, Total Protein 7.3, Albumin 4.2, Globulin 3.1, Albumin/Globulin Ratio 1.3 Height (Feet): 5 Height (Inches): 8.00 Weight (Pounds): 229 General Appearance: lethargic Cardiovascular: normal rate Respiratory/Chest: decreased breath sounds Abdomen: other - obese EWELINA COWART Oct 28, 2016 10:58
[2016-10-28 11:31] VITALS: BP 96/57
--- NOTE | 2016-10-28 11:32 | Pulmonology Progress Note ---
Assessment/Plan Problems: (1) Acute respiratory failure (2) Diabetes mellitus (3) ATN (acute tubular necrosis) (4) ICD (implantable cardioverter-defibrillator) in place (5) COPD (chronic obstructive pulmonary disease) Assessment/Plan diuresed 8liters as of today less short of breath ICD interrogation done, respiratory treatment tolerating diet dc home today with close f/u as outpatient Subjective ROS Limited/Unobtainable: No Constitutional: Reports: no symptoms HEENT: Repors: no symptoms Respiratory: Reports: no symptoms Cardiovascular: Reports: no symptoms Gastrointestinal/Abdominal: Reports: no symptoms Allergies: Coded Allergies: PENICILLINS (Verified Allergy, Intermediate, RASH, 05/08/13) FLUTICASONE (Verified Allergy, Unknown, 10/24/16) FORMOTEROL (Unverified Allergy, Unknown, 10/24/16) MOMETASONE FUROATE (Unverified Allergy, Unknown, 10/24/16) SALMETEROL (Verified Allergy, Unknown, 10/24/16) TIOTROPIUM (Verified Allergy, Unknown, 10/24/16) Objective Last 24 Hour Vital Signs Date Time Temp Pulse Resp B/P Pulse Ox O2 Delivery O2 Flow Rate FiO2 10/28/16 10:04 75 18 100 Nasal Cannula 3.0 32 10/28/16 09:52 75 18 98 Nasal Cannula 3.0 32 10/28/16 09:00 60 95/35 10/28/16 09:00 95/35 10/28/16 09:00 60 10/28/16 07:45 96.6 60 18 95/35 97 Room Air 10/28/16 04:00 98.0 61 19 101/74 100 Nasal Cannula 2.0 10/28/16 04:00 62 10/28/16 00:00 97.5 67 22 135/70 96 Nasal Cannula 2.0 10/28/16 00:00 67 10/27/16 22:43 64 18 98 Nasal Cannula 3.0 32 10/27/16 22:03 64 96/63 10/27/16 20:00 97.2 64 20 96/63 99 Nasal Cannula 3.0 10/27/16 20:00 80 10/27/16 16:00 97.3 60 19 92/65 100 Simple Mask 60 10/27/16 15:51 71 7/9/17 12:00 95.7 60 19 94/66 97 Simple Mask 60 10/27/16 11:54 60 Intake and Output 10/27/16 10/28/16 19:00 07:00 Intake Total 300 ml Output Total 1700 ml 2300 ml Balance -1700 ml -2000 ml Intake Oral 300 ml Output Urine Total 1700 ml 2300 ml General Appearance: WD/WN HEENT: normocephalic, atraumatic Respiratory/Chest: chest wall non-tender, lungs clear Breasts: no masses Cardiovascular: normal rate Abdomen: normal bowel sounds, soft, non tender, no organomegaly Extremities: no clubbing Neurologic/Psychiatric: taping foreman II-XII grossly normal, no motor/sensory deficits, abnormal gait Laboratory Tests 10/28/16 07:15: White Blood Count 8.7, Red Blood Count 4.55, Hemoglobin 12.8, Hematocrit 42.1, Mean Corpuscular Volume 93, Mean Corpuscular Hemoglobin 28.1, Mean Corpuscular Hemoglobin Concent 30.4L, Red Cell Distribution Width 17.2H, Platelet Count 220 , Mean Platelet Volume 6.2L, Neutrophils (%) (Auto) , Lymphocytes (%) (Auto) , Monocytes (%) (Auto) , Eosinophils (%) (Auto) , Basophils (%) (Auto) , Differential Total Cells Counted 100, Neutrophils % (Manual) 66, Lymphocytes % ( Manual) 26, Monocytes % (Manual) 7, Eosinophils % (Manual) 1, Basophils % ( Manual) 0, Band Neutrophils 0, Platelet Estimate Adequate, Platelet Morphology Normal, Hypochromasia 1+, Anisocytosis 1+, Sodium Level 141, Potassium Level 3.4 , Chloride Level 97L, Carbon Dioxide Level 31H, Anion Gap 13, Blood Urea Nitrogen 42H, Creatinine 1.7H, Estimat Glomerular Filtration Rate 37.9, Glucose Level 115H, Uric Acid 12.1H, Calcium Level 9.7, Phosphorus Level 3.4, Magnesium Level 2.0, Total Bilirubin 1.4H, Direct Bilirubin 0.6H, Aspartate Amino Transf ( AST/SGOT) 19, Alanine Aminotransferase (ALT/SGPT) 25, Alkaline Phosphatase 54, C -Reactive Protein, Quantitative 3.1H, Pro-B-Type Natriuretic Peptide 6151H, Total Protein 7.3, Albumin 4.2, Globulin 3.1, Albumin/Globulin Ratio 1.3 Current Medications Medications (Trade) Dose Ordered Sig/Stephanie Route PRN Reason Start Time Stop Time Status Last Admin Dose Admin Acetaminophen (Tylenol) 650 mg Q4H PRN ORAL T>100.5 10/26/16 18:30 11/25/16 18:29 Acetaminophen/ Hydrocodone Bitart ([place] 10) 1 ea Q6H PRN ORAL PAIN 4-10 10/26/16 18:30 11/02/16 18:29 10/28/16 09:17 Albuterol/ Ipratropium (DuoNeb 0.5-3(2.5)mg/3ml) 3 ml Q4H PRN HHN Shortness of Breath 10/26/16 19:00 10/31/16 18:59 10/28/16 09:55 Allopurinol (Allopurinol) 300 mg DAILY ORAL 10/27/16 09:00 11/26/16 08:59 10/28/16 09:17 Carvedilol (Coreg) 12.5 mg Q12HR ORAL 10/27/16 09:00 11/26/16 08:59 10/27/16 22:03 Dextrose (Dextrose 50%) STAT PRN IV Hypoglycemia 10/27/16 19:00 11/26/16 18:59 Digoxin (Lanoxin) 0.125 mg DAILY ORAL 10/27/16 09:00 11/26/16 08:59 10/27/16 09:05 Furosemide (Lasix) 40 mg Q8HR IV 10/26/16 22:00 11/25/16 21:59 10/28/16 06:28 Gabapentin (Neurontin) 300 mg THREE TIMES A DAY ORAL 10/28/16 13:00 11/27/16 12:59 Heparin Sodium (Porcine) (Heparin 5000 units/ml) 5,000 units EVERY 12 HOURS SUBQ 10/26/16 21:00 11/25/16 20:59 10/28/16 09:24 Insulin Aspart (NovoLOG) BEFORE MEALS AND HS SUBQ 10/26/16 21:00 11/25/16 20:59 10/27/16 22:01 Lisinopril (Zestril) 2.5 mg DAILY ORAL 10/27/16 09:00 11/26/16 08:59 10/27/16 09:09 Ondansetron HCl (Zofran) 4 mg Q6H PRN IVP Nausea & Vomiting 10/26/16 19:00 11/25/16 18:59 Pantoprazole (Protonix) 40 mg EVERY 12 HOURS ORAL 10/26/16 21:00 11/25/16 20:59 10/28/16 09:18 Polyethylene Glycol (Miralax) 17 gm DAILYPRN PRN ORAL Constipation 10/26/16 19:00 11/25/16 18:59 Potassium Chloride (K-Dur) 40 meq DAILY ORAL 10/28/16 12:00 11/27/16 11:59 Sertraline HCl (Zoloft) 50 mg DAILY ORAL 10/27/16 09:00 11/26/16 08:59 10/28/16 09:18 Trazodone HCl (Desyrel) 50 mg QHS PRN ORAL Insomnia 10/26/16 21:00 11/25/16 20:59 10/27/16 22:02 BART MARIE Oct 28, 2016 11:32
[2016-10-28 15:31] VITALS: BP 132/59
[2016-10-28] MEDS ORDERED: NS 275ml ONE (16:23)
--- NOTE | 2016-10-28 18:10 | Internal Med Progress Note ---
Subjective Date of Service: Oct 28, 2016 Physician Name Aleisha Tang Attending Physician Rosales Arias MD Current Medications Medications (Trade) Dose Ordered Sig/Stephanie Route PRN Reason Start Time Stop Time Status Last Admin Dose Admin Acetaminophen (Tylenol) 650 mg Q4H PRN ORAL T>100.5 10/26/16 18:30 11/25/16 18:29 Acetaminophen/ Hydrocodone Bitart ([place] 10/325) 1 ea Q6H PRN ORAL PAIN 4-10 10/26/16 18:30 11/02/16 18:29 10/28/16 09:17 Albuterol/ Ipratropium (DuoNeb 0.5-3(2.5)mg/3ml) 3 ml Q4H PRN HHN Shortness of Breath 10/26/16 19:00 10/31/16 18:59 10/28/16 14:56 Allopurinol (Allopurinol) 300 mg DAILY ORAL 10/27/16 09:00 11/26/16 08:59 10/28/16 09:17 Carvedilol (Coreg) 12.5 mg Q12HR ORAL 10/27/16 09:00 11/26/16 08:59 10/27/16 22:03 Dextrose (Dextrose 50%) STAT PRN IV Hypoglycemia 10/27/16 19:00 11/26/16 18:59 Digoxin (Lanoxin) 0.125 mg DAILY ORAL 10/27/16 09:00 11/26/16 08:59 10/27/16 09:05 Furosemide (Lasix) 40 mg Q8HR IV 10/26/16 22:00 11/25/16 21:59 10/28/16 06:28 Gabapentin (Neurontin) 300 mg THREE TIMES A DAY ORAL 10/28/16 13:00 11/27/16 12:59 10/28/16 17:46 Heparin Sodium (Porcine) (Heparin 5000 units/ml) 5,000 units EVERY 12 HOURS SUBQ 10/26/16 21:00 11/25/16 20:59 10/28/16 09:24 Insulin Aspart (NovoLOG) BEFORE MEALS AND HS SUBQ 10/26/16 21:00 11/25/16 20:59 10/28/16 12:35 Lisinopril (Zestril) 2.5 mg DAILY ORAL 10/27/16 09:00 11/26/16 08:59 10/27/16 09:09 Ondansetron HCl (Zofran) 4 mg Q6H PRN IVP Nausea & Vomiting 10/26/16 19:00 11/25/16 18:59 Pantoprazole (Protonix) 40 mg EVERY 12 HOURS ORAL 10/26/16 21:00 11/25/16 20:59 10/28/16 09:18 Polyethylene Glycol (Miralax) 17 gm DAILYPRN PRN ORAL Constipation 10/26/16 19:00 11/25/16 18:59 Potassium Chloride (K-Dur) 40 meq DAILY ORAL 10/28/16 12:00 11/27/16 11:59 10/28/16 12:35 Sertraline HCl (Zoloft) 50 mg DAILY ORAL 10/27/16 09:00 11/26/16 08:59 10/28/16 09:18 Trazodone HCl (Desyrel) 50 mg QHS PRN ORAL Insomnia 10/26/16 21:00 11/25/16 20:59 10/27/16 22:02 Allergies: Coded Allergies: PENICILLINS (Verified Allergy, Intermediate, RASH, 05/08/13) FLUTICASONE (Verified Allergy, Unknown, 10/24/16) FORMOTEROL (Unverified Allergy, Unknown, 10/24/16) MOMETASONE FUROATE (Unverified Allergy, Unknown, 10/24/16) SALMETEROL (Verified Allergy, Unknown, 10/24/16) TIOTROPIUM (Verified Allergy, Unknown, 10/24/16) ROS Limited/Unobtainable: No Constitutional: Reports: no symptoms HEENT: Reports: no symptoms Cardiovascular: Reports: no symptoms Respiratory: Reports: shortness of breath Gastrointestinal/Abdominal: Reports: no symptoms Genitourinary: Reports: no symptoms Neurologic/Psychiatric: Reports: no symptoms Subjective 56 YO F admitted with respiratory failure. Cover for [facility] Arias. Patient wants to discharge. Objective Last Vital Signs Date Time Temp Pulse Resp B/P Pulse Ox O2 Delivery O2 Flow Rate FiO2 10/28/16 16:00 48 10/28/16 15:31 96.3 18 132/59 98 Nasal Cannula 2.0 10/28/16 14:40 32 Laboratory Tests Test 10/28/16 07:15 White Blood Count 8.7 K/UL (4.8-10.8) Red Blood Count 4.55 M/UL (4.20-5.40) Hemoglobin 12.8 G/DL (12.0-16.0) Hematocrit 42.1 % (37.0-47.0) Mean Corpuscular Volume 93 FL (80-99) Mean Corpuscular Hemoglobin 28.1 PG (27.0-31.0) Mean Corpuscular Hemoglobin Concent 30.4 G/DL (32.0-36.0) L Red Cell Distribution Width 17.2 % (11.6-14.8) H Platelet Count 220 K/UL (150-450) Mean Platelet Volume 6.2 FL (6.5-10.1) L Neutrophils (%) (Auto) % (45.0-75.0) Lymphocytes (%) (Auto) % (20.0-45.0) Monocytes (%) (Auto) % (1.0-10.0) Eosinophils (%) (Auto) % (0.0-3.0) Basophils (%) (Auto) % (0.0-2.0) Differential Total Cells Counted 100 Neutrophils % (Manual) 66 % (45-75) Lymphocytes % (Manual) 26 % (20-45) Monocytes % (Manual) 7 % (1-10) Eosinophils % (Manual) 1 % (0-3) Basophils % (Manual) 0 % (0-2) Band Neutrophils 0 % (0-8) Platelet Estimate Adequate Platelet Morphology Normal Hypochromasia 1+ Anisocytosis 1+ Sodium Level 141 mEQ/L (135-145) Potassium Level 3.4 mEQ/L (3.4-4.9) Chloride Level 97 mEQ/L (98-107) L Carbon Dioxide Level 31 mEQ/L (20-30) H Anion Gap 13 (5-15) Blood Urea Nitrogen 42 mg/dL (7-23) H Creatinine 1.7 mg/dL (0.5-0.9) H Estimat Glomerular Filtration Rate 37.9 mL/min (>60) Glucose Level 115 mg/dL (74-106) H Uric Acid 12.1 mg/dL (3.0-7.5) H Calcium Level 9.7 mg/dL (8.6-10.2) Phosphorus Level 3.4 mg/dL (2.5-4.8) Magnesium Level 2.0 mg/dL (1.7-2.5) Total Bilirubin 1.4 mg/dL (0.0-1.2) H Direct Bilirubin 0.6 mg/dL (0.1-0.3) H Aspartate Amino Transf (AST/SGOT) 19 U/L (5-40) Alanine Aminotransferase (ALT/SGPT) 25 U/L (3-33) Alkaline Phosphatase 54 U/L (35-104) C-Reactive Protein, Quantitative 3.1 mg/dL (< 0.5) H Pro-B-Type Natriuretic Peptide 6151 pg/mL (0-125) H Total Protein 7.3 g/dL (6.6-8.7) Albumin 4.2 g/dL (3.5-5.2) Globulin 3.1 g/dL Albumin/Globulin Ratio 1.3 (1.0-2.7) Intake and Output 10/27/16 10/28/16 19:00 07:00 Intake Total 300 ml Output Total 1700 ml 2300 ml Balance -1700 ml -2000 ml Intake Oral 300 ml Output Urine Total 1700 ml 2300 ml Objective General Appearance: WD/WN, alert, mild distress EENT: PERRL/EOMI, normal ENT inspection Neck: non-tender, normal alignment, supple, normal inspection Cardiovascular: normal peripheral pulses, normal rate, regular rhythm, no gallop/murmur, no JVD Respiratory/Chest: chest wall non-tender, crackles/rales, rhonchi - bilaterally , expiratory wheezing Abdomen: normal bowel sounds, non tender, soft, no organomegaly, no mass Edema: trace edema Skin: normal pigmentation, warm/dry Assessment/Plan Problem List: (1) HTN (hypertension) Assessment & Plan: Continue lisinopril. (2) COPD (chronic obstructive pulmonary disease) Assessment & Plan: See pulmonary note. (3) Acute respiratory failure Assessment & Plan: Due to CHF and COPD. See pulmonary and cardiology note. (4) Congestive heart failure Assessment & Plan: EF 10-15%. See cardiology note. (5) Renal insufficiency (6) Diabetes mellitus Assessment & Plan: Continue novolog sliding scale. Assessment/Plan Await ICD interrogation. ALEISHA TANG Oct 28, 2016 18:10
[2016-10-28 20:00] VITALS: BP 98/53
--- NOTE | 2016-10-28 20:32 | Cardiology Progress Note ---
Assessment/Plan Assessment/Plan chf acut sytolic and diastolic cm mr ar copd obeisty dirutic to be contienued cr iomporved sx imporoved acei will increae in a few days bb Subjective Cardiovascular: Denies: chest pain Respiratory: Reports: shortness of breath Gastrointestinal/Abdominal: Denies: abdominal pain Objective Last 24 Hour Vital Signs Date Time Temp Pulse Resp B/P Pulse Ox O2 Delivery O2 Flow Rate FiO2 10/28/16 20:20 77 18 100 Nasal Cannula 2.0 28 10/28/16 20:12 76 18 96 Nasal Cannula 3.0 32 10/28/16 20:00 98.1 64 20 98/53 98 Nasal Cannula 2.0 32 10/28/16 16:00 48 10/28/16 15:31 96.3 60 18 132/59 98 Nasal Cannula 2.0 10/28/16 14:40 71 18 100 Nasal Cannula 3.0 32 10/28/16 14:33 70 18 96 Nasal Cannula 3.0 32 10/28/16 12:00 64 10/28/16 11:31 96.9 64 18 96/57 98 Nasal Cannula 2.0 10/28/16 10:04 75 18 100 Nasal Cannula 3.0 32 10/28/16 09:52 75 18 98 Nasal Cannula 3.0 32 10/28/16 09:00 60 95/35 10/28/16 09:00 95/35 10/28/16 09:00 60 10/28/16 08:00 61 10/28/16 07:45 96.6 60 18 95/35 97 Room Air 10/28/16 04:00 98.0 61 19 101/74 100 Nasal Cannula 2.0 10/28/16 04:00 62 10/28/16 00:00 97.5 67 22 135/70 96 Nasal Cannula 2.0 10/28/16 00:00 67 10/27/16 22:43 64 18 98 Nasal Cannula 3.0 32 10/27/16 22:03 64 96/63 General Appearance: no apparent distress, alert Neck: supple Cardiovascular: normal rate, regular rhythm Respiratory/Chest: normal breath sounds, decreased breath sounds Abdomen: normal bowel sounds, non tender, soft Extremities: no swelling Intake and Output 10/27/16 10/28/16 19:00 07:00 Intake Total 300 ml Output Total 1700 ml 2300 ml Balance -1700 ml -2000 ml Intake Oral 300 ml Output Urine Total 1700 ml 2300 ml Laboratory Tests Test 10/28/16 07:15 White Blood Count 8.7 K/UL (4.8-10.8) Red Blood Count 4.55 M/UL (4.20-5.40) Hemoglobin 12.8 G/DL (12.0-16.0) Hematocrit 42.1 % (37.0-47.0) Mean Corpuscular Volume 93 FL (80-99) Mean Corpuscular Hemoglobin 28.1 PG (27.0-31.0) Mean Corpuscular Hemoglobin Concent 30.4 G/DL (32.0-36.0) L Red Cell Distribution Width 17.2 % (11.6-14.8) H Platelet Count 220 K/UL (150-450) Mean Platelet Volume 6.2 FL (6.5-10.1) L Neutrophils (%) (Auto) % (45.0-75.0) Lymphocytes (%) (Auto) % (20.0-45.0) Monocytes (%) (Auto) % (1.0-10.0) Eosinophils (%) (Auto) % (0.0-3.0) Basophils (%) (Auto) % (0.0-2.0) Differential Total Cells Counted 100 Neutrophils % (Manual) 66 % (45-75) Lymphocytes % (Manual) 26 % (20-45) Monocytes % (Manual) 7 % (1-10) Eosinophils % (Manual) 1 % (0-3) Basophils % (Manual) 0 % (0-2) Band Neutrophils 0 % (0-8) Platelet Estimate Adequate Platelet Morphology Normal Hypochromasia 1+ Anisocytosis 1+ Sodium Level 141 mEQ/L (135-145) Potassium Level 3.4 mEQ/L (3.4-4.9) Chloride Level 97 mEQ/L (98-107) L Carbon Dioxide Level 31 mEQ/L (20-30) H Anion Gap 13 (5-15) Blood Urea Nitrogen 42 mg/dL (7-23) H Creatinine 1.7 mg/dL (0.5-0.9) H Estimat Glomerular Filtration Rate 37.9 mL/min (>60) Glucose Level 115 mg/dL (74-106) H Uric Acid 12.1 mg/dL (3.0-7.5) H Calcium Level 9.7 mg/dL (8.6-10.2) Phosphorus Level 3.4 mg/dL (2.5-4.8) Magnesium Level 2.0 mg/dL (1.7-2.5) Total Bilirubin 1.4 mg/dL (0.0-1.2) H Direct Bilirubin 0.6 mg/dL (0.1-0.3) H Aspartate Amino Transf (AST/SGOT) 19 U/L (5-40) Alanine Aminotransferase (ALT/SGPT) 25 U/L (3-33) Alkaline Phosphatase 54 U/L (35-104) C-Reactive Protein, Quantitative 3.1 mg/dL (< 0.5) H Pro-B-Type Natriuretic Peptide 6151 pg/mL (0-125) H Total Protein 7.3 g/dL (6.6-8.7) Albumin 4.2 g/dL (3.5-5.2) Globulin 3.1 g/dL Albumin/Globulin Ratio 1.3 (1.0-2.7) OLLIE DE DIOS Oct 28, 2016 20:32
[2016-10-29] MEDS ORDERED: LISINOPRIL5 MG ORAL (07:02)
--- NOTE | 2016-10-29 07:10 | Discharge Summary ---
Discharge Summary Hospital Course Date of Admission Oct 24, 2016 at 15:55 Date of Discharge Oct 28, 2016 at 21:56 Admitting Diagnosis respiratory failure HPI Kalyani Baez is a 56 year old female who was admitted on Oct 24, 2016 at 15:55 for Respiratory Failure Hospital Course dc summary#[id number] Discharge Medications New Medications: Lisinopril (Lisinopril*) 5 Mg Tablet 2.5 MG ORAL DAILY, #30 TAB Continued Medications: Albuterol Sulfate (Ventolin Hfa) 18 Gm Hfa.aer.ad Unknown Dose INH EVERY 6 HOURS, #18 GM 0 Refills Aspirin (Aspirin) 500 Mg Tablet 81 MG ORAL, TAB Carvedilol (Coreg) 3.125 Mg Tab 12.5 MG ORAL BID, TAB Digoxin* (Digoxin*) 0.125 Mg/2.5 Ml Solution 0.125 MG ORAL DAILY, ML 0 Refills Furosemide* (Lasix*) 20 Mg Tablet 80 MG ORAL PRN, TAB Gabapentin* (Gabapentin*) 300 Mg Capsule 600 MG ORAL THREE TIMES A DAY, CAP Glipizide* (Glipizide*) 5 Mg Tablet 20 MG ORAL BID, TAB Insulin Regular, Human (Humulin R) 100 Unit/1 Ml Vial 0 SUBQ, VIAL Sertraline Hcl* (Zoloft*) 50 Mg Tablet 50 MG ORAL DAILY, #30 TAB Sitagliptin (Januvia) 100 Mg Tab 100 MG ORAL DAILY, TAB Discharge Condition Upon Discharge: stable Discharge Disposition Patient was discharged to Home (01) Discharge Diagnoses: Discharge Instructions Discharge Instructions Special Instructions I have been assigned to complete a D/C Summary on this account. I was not involved in the patient management Sona Webb NP ([place]) Oct 29, 2016 07:10
--- NOTE | 2016-10-29 15:02 | Discharge Summary 2 SIG ---
DATE OF ADMISSION: 10/24/2016 DATE OF DISCHARGE: 10/28/2016 REASON FOR ADMISSION: 56 years old female with past medical history of COPD, CHF, AICD, diabetes, hypertension, history of CVA, presented to emergency department with dyspnea. According to the patient, she had a low oxygen saturation at home. The patient using BiPAP at home as needed as well as nebulizing treatment. She was given albuterol by paramedics on the way to emergency room with some improvement in oxygen saturation. The patient stated she was diabetic, but she was not eating the whole day. The patient still smoking. Workup in the emergency room revealed creatinine -2.4. Pro BNP - 18,714. Troponin was negative. Chest x-ray was consistent with CHF. Glucose - 52. The patient received subsequently 1 ampule of D50.. ABG on five liters of oxygen revealed pH of 7.33, pCO2 of 45, and saturation was 95%. The patient later was switched to BiPAP and oxygen saturation improved on the BiPAP. Lasix was given. EKG showed normal sinus rhythm. No acute ischemic changes. Lactic acid - 1.9. The patient was transferred to ICU for further management. ADMITTING DIAGNOSES: 1. Acute on chronic hypoxemic respiratory failure. 2. Acute on chronic congestive heart failure. 3. Automatic implanted cardioverter defibrillator. 4. Bronchospasm. 5. Hypoglycemia. 6. Diabetes mellitus. 7. Obesity. 8. Acute tubular necrosis. HOSPITAL STAY: The patient admitted initially to ICU, on BiPAP, settings were titrated to keep FiO2 above 92%. Pulmonary toilet provided. The patient subsequently was able to be weaned from the BiPAP to oxygen via nasal cannula. The patient started on diuresis. Intake and output, renal parameters, electrolytes were closely monitored. Instrumentation Chemist, pressroom supervisor, and slubber runner closely followed. Pro BNP was trending down. Pro BNP from initial 18,714 down to 6151. Chest x-ray appeared better. The patient clinically improved. Troponin x3 were negative. EKG revealed no acute ischemic changes. The patient was ruled out for acute [place]. Lipid panel was stable. TSH level was stable. Venous duplex of bilateral lower extremities was negative. Echocardiogram revealed ejection fraction less than 20%, global left ventricular hypokinesis, moderate aortic regurgitation, severe mitral regurgitation, [id number] tricuspid regurgitation, right ventricular systolic pressure of 68 consistent with severe pulmonary hypertension. Interrogation of AICD was done, AICD function properly. The patient was on medical management for congestive heart failure including digoxin, beta-aggie, diuretic, Lasix, and Aldactone and started on low dose of MELINDA. According to time study technician, MELINDA dose should be titrated as outpatient in few days later. Renal ultrasound was done as ordered by pressroom supervisor, which revealed no hydronephrosis and normal bilateral kidney echogenicity. According to pressroom supervisor, acute tubular necrosis was likely secondary to underlying heart disease and diabetes. The patient clinically improved and was stable for discharge home on medical management for congestive heart failure. The patient had oxygen and nebulizing machine at home. Follow up with the primary medical doctor and time study technician. FINAL DIAGNOSES: 1. Acute on chronic hypoxemic respiratory failure. 2. Acute on chronic systolic and diastolic congestive heart failure. 3. Severe cardiomyopathy (ejection fraction less than 20%). 4. Automatic implantable cardioverter-defibrillator. 5. Chronic obstructive pulmonary disease. 6. Severe mitral regurgitation. 7. Moderate aortic regurgitation. 8. Severe pulmonary hypertension. 9. Acute tubular necrosis. 10. Diabetes mellitus with peripheral circulatory disorder. 11. Obesity. DISCHARGE MEDICATIONS: See medication reconciliation list. DISCHARGE INSTRUCTIONS: The patient was discharged home. Follow up with the primary medical doctor and time study technician. Rosales Arias M.D. I have been assigned to dictate discharge summary on this account and I was not involved in the patient's management. Sona Webb (Vanchtein) N.PCee DR: DINESH JOB#: [id number] CC: CHERELLE
== END 2016-10-28 21:56 | disposition home or self-care (01) | DRG 194 ==
LOC: EDBD 12:59 → EMR 13:20 → EDBEDREQ 15:43 → ICU 15:55 → EDBEDREQ 17:01 → 2E 10-26 17:42
DX: I11.0 Hypertensive heart disease with heart failure (principal); J96.21 Acute and chronic respiratory failure with hypoxia; N17.0 Acute kidney failure with tubular necrosis; I50.43 Acute on chronic combined systolic (congestive) and diastolic (congestive) heart failure; E10.8 Type 1 diabetes mellitus with unspecified complications; E66.9 Obesity, unspecified; Z68.34 Body mass index [BMI] 34.0-34.9, adult; Z99.81 Dependence on supplemental oxygen; Z95.810 Presence of automatic (implantable) cardiac defibrillator; E10.51 Type 1 diabetes mellitus with diabetic peripheral angiopathy without gangrene; Z79.4 Long term (current) use of insulin; E10.649 Type 1 diabetes mellitus with hypoglycemia without coma; I42.9 Cardiomyopathy, unspecified; I08.3 Combined rheumatic disorders of mitral, aortic and tricuspid valves; J44.9 Chronic obstructive pulmonary disease, unspecified
CPT/HCPCS: 36415; 36600; 71010; 76775; 80048; 80053; 80061; 80069; 80162; 81003; 81050; 82248; 82550; 82575; 82803; 82962; 82977; 83036; 83605; 83735; 83880; 84100; 84156; 84443; 84484; 84550; 85007; 85025; 85610; 85730; 86140; 87040; 87081; 93005; 93306; 93970; 94640; 94660; J1815; J7620; J8499